=== PATIENT | male | born 1940 | race Caucasian/White ===

== ENCOUNTER 2021-08-02 07:56 | Emergency (ER) | payer OTHER ==
[~2021-08-02] VITALS: Ht 165.1 cm; Wt 68.5 kg
--- NOTE | 2021-08-02 07:56 | NUR ---
[facility] C/O LEFT HEEL BLEEDING. PT IS AAOX0, NOT IN RESPIRATORY DISTRESS, V/S STABLE, KEPT RESTED AND COMFORTABLE. WILL CONTINUE TO MONITOR.
[2021-08-02] MEDS ORDERED: GELATIN SPONGE,ABSORBABLE 1 SPONGE SPONGE TP ONE (08:03)
--- NOTE | 2021-08-02 08:22 | NUR ---
MAGDALENA MYERS AND AT BEDSIDE FOR WOUND CHECK AND DRESSING.
--- NOTE | 2021-08-02 08:30 | NUR ---
IV LINE ESTABLISHED BLOOD DRAWN AND SENT TO LAB.
[2021-08-02 08:45] LABS: BASOPHILS # (AUTO) 0.1 K/uL (0.0-0.2); BASOPHILS % (AUTO) 0.9 % (0.0-2.0); EOSINOPHILS % (AUTO) 4.1 % (0.0-6.0); HEMATOCRIT 37 % (39-51); HEMOGLOBIN 11.7 g/dL (13.5-17.5); LYMPHOCYTES # (AUTO) 0.9 K/uL (0.8-4.8); LYMPHOCYTES % (AUTO) 8.8 % (20.0-44.0); MEAN CORPUSCULAR HGB CONC 32 g/dl (31.0-36.0); MEAN CORPUSCULAR VOLUME 96 fL (80-96); MONOCYTES % (AUTO) 9.6 % (2.0-12.0); NEUTROPHILS # (AUTO) 7.6 K/uL (1.8-8.9); NEUTROPHILS % (AUTO) 76.6 % (43.0-81.0); PLATELET COUNT (AUTO) 247 K/uL (150-450); WHITE BLOOD COUNT (AUTO) 9.9 K/uL (4.3-11.0)
[2021-08-02 09:01] LABS: CALCIUM, SERUM 8.3 mg/dL (8.5-10.1); CARBON DIOXIDE 25 mmol/L (21-32); CHLORIDE 97 mmol/L (98-107); CREATININE 4.1 mg/dL (0.6-1.3); GLUCOSE 101 mg/dL (74-106); POTASSIUM 4.4 mmol/L (3.5-5.1); SODIUM SERUM 136 mmol/L (136-145); UREA NITROGEN, BLOOD 65 mg/dL (7-18)
--- NOTE | 2021-08-02 09:33 | NUR ---
DR MCLEAN PAGED AT [phone]
--- NOTE | 2021-08-02 09:38 | NUR ---
CALL BACK FROM DR MCLEAN, MAY GO BACK TO FACILITY PER DR GONZALEZ
--- NOTE | 2021-08-02 10:16 | NUR ---
SPOKED TO MINO GIVENS FOR PT TRANSFER BACK TO [facility].
--- NOTE | 2021-08-02 10:35 | NUR ---
[facility] CALLED ETA 60 MINS PER LIYA.
--- NOTE | 2021-08-02 12:14 | NUR ---
REPORT GIVEN TO EMT FOR PT TRANSFER TO [facility].
[2021-08-02 12:23] VITALS: BP 101/54
== END 2021-08-02 12:27 ==
LOC: ER 07:59
DX: E11.621 Type 2 diabetes mellitus with foot ulcer (principal); L97.421 Non-pressure chronic ulcer of left heel and midfoot limited to breakdown of skin; I12.0 Hypertensive chronic kidney disease with stage 5 chronic kidney disease or end stage renal disease; E11.22 Type 2 diabetes mellitus with diabetic chronic kidney disease; N18.6 End stage renal disease; Z99.2 Dependence on renal dialysis; E78.5 Hyperlipidemia, unspecified; Z86.73 Personal history of transient ischemic attack (TIA), and cerebral infarction without residual deficits
CPT/HCPCS: 36415; 80048; 85025; 99283; A6403

== ENCOUNTER 2022-01-20 20:13 | Inpatient (IN) | payer OTHER ==
[~2022-01-20] VITALS: Ht 172.7 cm; Wt 71.2 kg
--- NOTE | 2022-01-20 20:35 | NUR ---
FERNANDO FROM [facility] C/O MISSED DIALYSIS FOR X 1 WEEK. DIALYSIS DAYS T THUR SAT. + COVID POSITIVE 01/15/22. PATIENT IS A/O X 3 RR EVEN AND UNLABORED, NO SOB NOTED. PATEINT TAKEN TO ER BED 07. PATIENT CONNECTED TO MONITORS.
--- NOTE | 2022-01-20 20:40 | NUR ---
20G IV LINE ESTABLISHED AT . BLOOD COLLECTED AND SENT TO LAB.
--- NOTE | 2022-01-20 20:50 | NUR ---
COVID TEST COLLECTED AND SENT TO LAB
[2022-01-20 21:21] LABS: BASOPHILS % (AUTO) 0.6 % (0.0-2.0); EOSINOPHILS % (AUTO) 4.2 % (0.0-6.0); HEMATOCRIT 30 % (39-51); HEMOGLOBIN 9.4 g/dL (13.5-17.5); LYMPHOCYTES # (AUTO) 1.3 K/uL (0.8-4.8); LYMPHOCYTES % (AUTO) 18.5 % (20.0-44.0); MEAN CORPUSCULAR HGB CONC 31 g/dl (31.0-36.0); MEAN CORPUSCULAR VOLUME 95 fL (80-96); MONOCYTES # (AUTO) 0.7 K/uL (0.1-1.30); MONOCYTES % (AUTO) 10.5 % (2.0-12.0); NEUTROPHILS # (AUTO) 4.5 K/uL (1.8-8.9); NEUTROPHILS % (AUTO) 66.2 % (43.0-81.0); PLATELET COUNT (AUTO) 289 K/uL (150-450); RED BLOOD CELL COUNT(AUTO) 3.17 MIL/uL (4.5-6.0); WHITE BLOOD COUNT (AUTO) 6.9 K/uL (4.3-11.0)
[2022-01-20 21:42] LABS: ALANINE AMINOTRANSFERASE 20 U/L (12-78); ALBUMIN 2.8 g/dL (3.4-5.0); ALKALINE PHOSPHATASE 117 U/L (46-116); ASPARTATE AMINOTRANSFERASE 21 U/L (15-37); BILIRUBIN,TOTAL 0.5 mg/dL (0.2-1.0); CALCIUM, SERUM 9.2 mg/dL (8.5-10.1); CARBON DIOXIDE 31 mmol/L (21-32); GLUCOSE 96 mg/dL (74-106); TOTAL PROTEIN, SERUM 7.9 g/dL (6.4-8.2)
[2022-01-20 21:56] LABS: CREATININE 8.6 mg/dL (0.6-1.3); UREA NITROGEN, BLOOD 116 mg/dL (7-18)
[2022-01-20 22:16] LABS: CHLORIDE 98 mmol/L (98-107); POTASSIUM 5.3 mmol/L (3.5-5.1); SODIUM SERUM 139 mmol/L (136-145)
[2022-01-20] MEDS ORDERED: APIX5TAB GT (22:29)
[2022-01-20] MEDS ORDERED: ASPI-1169 GT (22:29)
[2022-01-20] MEDS ORDERED: SEVE0.8P3 GT (22:29)
[2022-01-20] MEDS ORDERED: METO25TA6 GT (22:29)
[2022-01-20] MEDS ORDERED: FAMO20TA8 GT (22:29)
[2022-01-20] MEDS ORDERED: CLON0.1T GT (22:29)
[2022-01-20] MEDS ORDERED: CLOP75TA15 GT (22:29)
[2022-01-20] MEDS ORDERED: ATOR80TA GT (22:29)
--- NOTE | 2022-01-20 22:58 | NUR ---
RM 101
[2022-01-20] MEDS ORDERED: ONDANSETRON HCL/PF 4 MG/2 ML VIAL IVP PRN (23:30)
[2022-01-20] MEDS ORDERED: ACETAMINOPHEN 325 MG TABLET PO PRN (23:30)
--- NOTE | 2022-01-20 23:44 | NUR ---
REPORT GIVEN TO KIRILL
--- NOTE | 2022-01-21 00:04 | NUR ---
PT TRANSFERREING TO [facility] VIA ACLS PROTOCOL. VSS. ALL BELONGINGS WITH PT
[2022-01-21 00:15] VITALS: BP 116/58
--- NOTE | 2022-01-21 00:30 | NUR ---
MS RN NOTE PATIENT ARRIVED ON UNIT, A/O X 0, NON-VERBAL OBTUNDED. PATIENT CONTRACTED. PATIENT STABLE ON RA, NO S/S OF DISTRESS OR SOB NOTED, BREATHING EVEN AND UNLABORED. IV ACCESS ON LEFT HAND #20G AND RIGHT HAND #20G INTACT AND FLUSHING WELL. PATIENT HAS WOUNDS ON LEFT ANKLE, LEFT HEEL, POSTERIOR/OCCIPITAL HEAD, SCROTUM/PERINEAL AREA, AND BUTTOCKS. VACCINATION STATUS UNKNOWN. PATIENT HAS HD ACCESS ON LEFT CHEST WALL. PATIENT HAS GTUBE, PER TRANFER PAPERWORK FROM FACILITY PATIENT ON NEPRO @ 85 ML/HR X 16 HRS. PATIENT HAS COUGH, PATIENT POSITIVE FOR COVID SINCE 01/15/22 PER FACILITY. SAFETY MEASURES IN PLACE: HOB ELEVATED, BED LOCKED IN LOWEST POSITION, SIDE RAILS UP X 3. WILL CONTINUE TO MONITOR PATIENT
[2022-01-21] MEDS ORDERED: INSU100I47 SQ (01:33)
[2022-01-21] MEDS ORDERED: CYAN1TAB19 PO (01:33)
[2022-01-21] MEDS ORDERED: NEPRO 1,000 ML BOTTLE GT PRN (02:00)
--- NOTE | 2022-01-21 02:02 | NUR ---
MS RN NOTE NOTIFIED STOREROOM ATTENDANT BRIANA CHILEL REGARDING PATIENT HAVING GTUBE, PER TRANSFER INFORMATION FROM FACILITY PATIENT IS ON NEPRO @ 85 ML/HR X 16 HR. PATIENT IS ALSO DIABETIC BUT NO SLIDING SCALE ORDER. ALSO NOTIFIED THAT MED RECON NEEDS TO BE DONE. ORDER TO RESUME TUBE FEEDING PER FACILITY ORDERS
[2022-01-21 04:00] VITALS: BP 94/55
[2022-01-21] MEDS ORDERED: DEXTROSE 50%-WATER 50 ML DISP.SYRIN IV PRN (04:30)
[2022-01-21 06:51] LABS: BASOPHILS # (AUTO) 0.1 K/uL (0.0-0.2); BASOPHILS % (AUTO) 0.8 % (0.0-2.0); EOSINOPHILS % (AUTO) 5.4 % (0.0-6.0); HEMATOCRIT 27 % (39-51); HEMOGLOBIN 8.8 g/dL (13.5-17.5); LYMPHOCYTES # (AUTO) 1.1 K/uL (0.8-4.8); LYMPHOCYTES % (AUTO) 17.1 % (20.0-44.0); MEAN CORPUSCULAR HGB CONC 32 g/dl (31.0-36.0); MEAN CORPUSCULAR VOLUME 95 fL (80-96); MONOCYTES # (AUTO) 0.8 K/uL (0.1-1.30); MONOCYTES % (AUTO) 12.2 % (2.0-12.0); NEUTROPHILS # (AUTO) 4.1 K/uL (1.8-8.9); NEUTROPHILS % (AUTO) 64.5 % (43.0-81.0); PLATELET COUNT (AUTO) 277 K/uL (150-450); RED BLOOD CELL COUNT(AUTO) 2.88 MIL/uL (4.5-6.0); WHITE BLOOD COUNT (AUTO) 6.4 K/uL (4.3-11.0)
[2022-01-21] MEDS: BLOOD SUGAR DIAGNOSTIC 1 EACH STRIP IN SCH ×4 (06:54→23:49)
[2022-01-21 07:18] LABS: CHOLESTEROL 94 mg/dL (<200); HDL CHOLESTEROL 30 mg/dL (40-60); LDL 44 mg/dL (0-99); TRIGLYCERIDES 134 mg/dL (30-150)
[2022-01-21 07:23] LABS: CALCIUM, SERUM 9.5 mg/dL (8.5-10.1); CARBON DIOXIDE 29 mmol/L (21-32); CHLORIDE 99 mmol/L (98-107); GLUCOSE 99 mg/dL (74-106); MAGNESIUM 3.4 mg/dL (1.8-2.4); PHOSPHORUS 7.6 mg/dL (2.5-4.9); POTASSIUM 5.4 mmol/L (3.5-5.1); SODIUM SERUM 141 mmol/L (136-145)
[2022-01-21 07:26] LABS: UREA NITROGEN, BLOOD 125 mg/dL (7-18)
[2022-01-21 07:27] LABS: CREATININE 9.1 mg/dL (0.6-1.3)
--- NOTE | 2022-01-21 07:30 | NUR ---
MS RN OPENING NOTES RECEIVED PATIENT SLEEPING COMFORTABLY IN BED. PATIENT IS A/O X 0, NON-VERBAL AND OBTUNDED. CURRENTLY, PATIENT IS ON RA, BREATHING EVEN AND UNLABORED. NO S/S OF DISTRESS OR SOB NOTED. PATIENT ON DROPLET/CONTACT PRECAUTIONS D/T COVID. IV ACCESS ON LEFT WRIST #20G AND RIGHT WRIST #20G INTACT AND SALINE LOCKED. PATIENT STARTED ON GT FEEDING, NEPRO @ 85 ML/HR X 16 HR. SAFETY MEASURES IN PLACE: HOB ELEVATED, SIDE RAILS UP X 3, BED LOCKED IN LOWEST POSITION, BED ALARM ON. WILL CONTINUE TO MONITOR FOR CONTINUITY OF CARE
--- NOTE | 2022-01-21 07:45 | NUR ---
MS RN CLOSING NOTE PATIENT SLEEPING IN BED, A/O X 0, OBTUNDED, NON-VERBAL. PATIENT STABLE ON RA, NO S/S OF DISTRESS OR SOB NOTED, BREATHING EVEN AND UNLABORED. IV ACCESS ON LEFT WRIST #20G AND RIGHT WRIST #20G INTACT AND SALINE LOCKED. PATIENT STARTED ON GT FEEDING, NEPRO @ 85 ML/HR X 16 HR. NO SIGNIFICANT CHANGES, PATIENT NEEDS MET THROUGHOUT SHIFT, PATIENT TURNED Q2H. SAFETY MEASURES IN PLACE: HOB ELEVATED, SIDE RAILS UP X 3, BED LOCKED IN LOWEST POSITION, BED ALARM ON, PATIENT ON DROPLET/CONTACT PRECAUTIONS FOR COVID. BLOOD SUGARS WNL. ENDORSED TO DAY SHIFT NURSE FOR CONTINUITY OF CARE
[2022-01-21] MEDS ORDERED: NITR0.4T48 SL (08:31)
[2022-01-21] MEDS ORDERED: NUT.237L67 GT (08:31)
[2022-01-21] MEDS ORDERED: BISA10SU11 RC (08:31)
[2022-01-21] MEDS ORDERED: DOCU50LI GT (08:31)
[2022-01-21] MEDS ORDERED: FOLI0.8T23 GT (08:31)
[2022-01-21] MEDS ORDERED: ACET-868 GT (08:31)
[2022-01-21] MEDS ORDERED: HYDR-4303 GT (08:31)
[2022-01-21] MEDS ORDERED: DIPH25TA22 GT (08:31)
[2022-01-21] MEDS ORDERED: EPOETIN ALFA (10,000 UNIT) 10,000 UNIT/ML VIAL IV ONE (09:00)
[2022-01-21] MEDS: METOPROLOL TARTRATE 25 MG TABLET PO SCH ×2 (09:00→17:00)
--- NOTE | 2022-01-21 09:20 | NUR ---
MS RN NOTES PATIENT IS IN DIALYSIS, HOLDING AM MEDS.
--- NOTE | 2022-01-21 10:31 | NUR ---
WOUND CARE CONSULT: REVIEWED CHART, NURSING DOCUMENTATION AND PHOTOS WHICH INDICATE SACRAL SCARRING WITH INCONTINENCE ASSOCIATED SKIN DAMAGE, OPEN AREA TO SCROTUM, FULL THICKNESS PRESSURE ULCER TO POSTERIOR SCALP AND LOWER EXTREMITY WOUNDS, PRESENT ON ADMISSION. DR LEDBETTER CALLED FOR DPM CONSULT AND DR LASHANDA MCLEAN CALLED FOR SURGICAL CONSULT. RECOMMENDATIONS MADE FOR SKIN PROTECTION AND WOUND CARE. DISCUSSED WITH NURSING STAFF. MD IN AGREEMENT WITH PLAN OF CARE. PT HAVING HEMODIALYSIS AT THIS TIME.
[2022-01-21] MEDS: ALBUMIN 25% 25 GM in PREMIX 1 EA IV PRN (10:50)
[2022-01-21] MEDS: THERAHONEY GEL 1.5 OZ TUBE TP SCH (12:21)
[2022-01-21] MEDS: Z GUARD REMEDY 4 OZ OINT TP SCH (12:21)
[2022-01-21] MEDS: ASPIRIN 81 MG TAB.CHEW PO SCH (12:28)
[2022-01-21] MEDS: SEVELAMER CARBONATE 800 MG TABLET PO SCH ×3 (12:28→17:55)
[2022-01-21] MEDS: APIXABAN 5 MG TABLET PO SCH ×2 (12:29→17:55)
[2022-01-21] MEDS: HEPARIN SODIUM, PORCINE 5000 UNITS/1 ML VIAL SQ SCH ×2 (12:29→21:32)
[2022-01-21] MEDS: CLOPIDOGREL BISULFATE 75 MG TABLET PO SCH (12:30)
--- NOTE | 2022-01-21 13:21 | NUR ---
MS RN NOTES SEVELAMER DOSE @1300 IS HOLD. PATIENT HAD A DIALYSIS, AND AM MEDICATIONS JUST ADMINISTERED.
--- NOTE | 2022-01-21 13:41 | NUR ---
MS RN NOTES CALLED DR. SAVAGE REGARDING ABOUT THE PT.'S DAUGHTER REQUEST (MALCOLM) FOR NOT ADMINISTERING KLONOPIN & BENZO. DR IS INFORMED ABOUT THE FAMILY MEMBER'S REQUEST FOR NAMENDA & LIPRASODINE. WAITING FOR THE DR'S APPROVAL.
[2022-01-21] MEDS: FAMOTIDINE (20 MG) 20 MG TABLET PO SCH (17:56)
[2022-01-21] MEDS: NEPRO 1,000 ML BOTTLE GT PRN (19:00)
[2022-01-21 20:00] VITALS: BP 100/53
--- NOTE | 2022-01-21 20:00 | NUR ---
RN NOTE PT SLEEPING, OPEN EYES TO VERBAL STIMULI. NOT IN ANY DISTRESS, ON ROOM AIR SATING 97%. GT PATENT AND INTACT, ON NEPRO FEEDING AT 85ML/HR NO RESIDUALS WERE NOTED. HOB ELEVATED. IV PATENT AND INTACT. ISOLATION PRECAUTION OBSERVED. WILL CONTINUE TO MONITOR.
[2022-01-21] MEDS: ATORVASTATIN 40 MG TABLET PO SCH (21:30)
--- NOTE | 2022-01-21 22:44 | NUR ---
RN NOTE GT FEEDING STOPPED, WITH ORDERS OF 85ML/HR [id number]. WILL RESTART FEEDING AT 0600.
--- NOTE | 2022-01-21 23:49 | NUR ---
RN NOTE FSBS 117. NO INSULIN COVERAGE GIVEN.
[2022-01-22 04:00] VITALS: BP 99/51
[2022-01-22] MEDS: BLOOD SUGAR DIAGNOSTIC 1 EACH STRIP IN SCH ×4 (05:40→23:01)
[2022-01-22] MEDS: INSULIN REGULAR, HUMAN 100 UNIT/ML 3 ML VIAL SQ PRN (05:42)
--- NOTE | 2022-01-22 06:34 | NUR ---
RN NOTE RESTARTED TUBE FEEDING.KEPT HOB ELEVATED. PT TOLERATES ROOM AIR, SATING 96%. NOT IN ANY DISTRESS. LEFT CHEST WALL HD CATH INTACT. VS WNL. WOUND TX WERE DONE ORDERED. TURNED AND REPOSITIONED. WILL ENDORSE TO NEXT SHIFT NURSE FOR JOSE.
[2022-01-22 07:28] LABS: BASOPHILS % (AUTO) 0.6 % (0.0-2.0); EOSINOPHILS % (AUTO) 4.2 % (0.0-6.0); HEMATOCRIT 26 % (39-51); HEMOGLOBIN 8.3 g/dL (13.5-17.5); MEAN CORPUSCULAR HGB CONC 32 g/dl (31.0-36.0); MEAN CORPUSCULAR VOLUME 95 fL (80-96); MONOCYTES # (AUTO) 0.6 K/uL (0.1-1.30); MONOCYTES % (AUTO) 8.7 % (2.0-12.0); NEUTROPHILS # (AUTO) 5.1 K/uL (1.8-8.9); NEUTROPHILS % (AUTO) 72.5 % (43.0-81.0); PLATELET COUNT (AUTO) 253 K/uL (150-450); RED BLOOD CELL COUNT(AUTO) 2.74 MIL/uL (4.5-6.0); WHITE BLOOD COUNT (AUTO) 7.1 K/uL (4.3-11.0)
--- NOTE | 2022-01-22 07:35 | NUR ---
RN NOTE PT RECEIVED IN BED, AWAKE AND RESPONSIVE. IN RA, NOT IN RESPI DISTRESS. COVID [address] AND PATENT WITH FEEDING NEPRO @ 85 CC/HR. ASPIRATION PREC MAINTAINED. LCW PERMACATH IN PLACE, NO SS OF BLEEDING NOTED. SAFETY MAINTAINED. WILL CONT TO MONITOR.
[2022-01-22 07:41] LABS: CALCIUM, SERUM 9.3 mg/dL (8.5-10.1); CARBON DIOXIDE 25 mmol/L (21-32); CHLORIDE 100 mmol/L (98-107); CREATININE 7.2 mg/dL (0.6-1.3); GLUCOSE 164 mg/dL (74-106); MAGNESIUM 3.1 mg/dL (1.8-2.4); PHOSPHORUS 4.9 mg/dL (2.5-4.9); POTASSIUM 4.5 mmol/L (3.5-5.1); SODIUM SERUM 139 mmol/L (136-145)
[2022-01-22 07:53] LABS: UREA NITROGEN, BLOOD 99 mg/dL (7-18)
[2022-01-22 08:38] LABS: ALBUMIN 2.8 g/dL (3.4-5.0); BILIRUBIN,DIRECT 0.1 mg/dL (0.0-0.2); BILIRUBIN,TOTAL 0.2 mg/dL (0.2-1.0); TOTAL PROTEIN, SERUM 6.7 g/dL (6.4-8.2)
[2022-01-22] MEDS: ASPIRIN 81 MG TAB.CHEW PO SCH (08:56)
[2022-01-22] MEDS: SEVELAMER CARBONATE 800 MG TABLET PO SCH (08:56)
[2022-01-22] MEDS: CLOPIDOGREL BISULFATE 75 MG TABLET PO SCH (08:56)
[2022-01-22] MEDS: APIXABAN 5 MG TABLET PO SCH ×2 (08:57→17:33)
[2022-01-22] MEDS: HEPARIN SODIUM, PORCINE 5000 UNITS/1 ML VIAL SQ SCH (08:57)
[2022-01-22] MEDS: METOPROLOL TARTRATE 25 MG TABLET PO SCH ×2 (09:00→17:00)
[2022-01-22] MEDS: THERAHONEY GEL 1.5 OZ TUBE TP SCH (09:11)
[2022-01-22] MEDS: Z GUARD REMEDY 4 OZ OINT TP PRN (09:12)
[2022-01-22] MEDS: Z GUARD REMEDY 4 OZ OINT TP SCH (09:12)
[2022-01-22 12:00] VITALS: BP 98/43
[2022-01-22] MEDS: SEVELAMER CARBONATE 800 MG POWD.PACK GT SCH ×2 (12:41→17:31)
[2022-01-22] MEDS ORDERED: APIXABAN 2.5 MG TABLET PO SCH (17:00)
[2022-01-22] MEDS: FAMOTIDINE (20 MG) 20 MG TABLET PO SCH (17:31)
[2022-01-22] MEDS: ALBUMIN 25% 25 GM in PREMIX 1 EA IV PRN (17:39)
[2022-01-22] MEDS: DAKINS QUARTER STRENGTH (0.125%) 480 ML BOTTLE TOP SCH (17:40)
--- NOTE | 2022-01-22 18:57 | NUR ---
RN NOTE PT RESTING IN BED, AWAKE AND RESPONSIVE.PT OBTUNDED. IN RA, NOT IN RESPI DISTRESS. COVID [address] AND PATENT WITH FEEDING NEPRO @ 85 CC/HR. ASPIRATION PREC MAINTAINED. LCW PERMACATH IN PLACE, NO SS OF BLEEDING NOTED. SAFETY MAINTAINED. S/P HD WITH 700 FLUIDS REMOVED. HD D/C EARLIER DUE TO HYPOTENSION. WILL CONT TO MONITOR. DUE MEDS GIVEN, AM/PM CARE DONE.
--- NOTE | 2022-01-22 19:29 | NUR ---
RN NOTE WOUND CX ON HEAD COLLECTED AND SENT TO LAB.
[2022-01-22] MEDS: NEPRO 1,000 ML BOTTLE GT PRN (19:30)
[2022-01-22 20:00] VITALS: BP 104/57
[2022-01-22] MEDS: ATORVASTATIN 40 MG TABLET PO SCH (22:02)
[2022-01-23 04:00] VITALS: BP 119/58
[2022-01-23] MEDS: BLOOD SUGAR DIAGNOSTIC 1 EACH STRIP IN SCH ×3 (05:36→17:16)
--- NOTE | 2022-01-23 06:23 | NUR ---
RN NOTE TUBE FEEDING STOPPED AT 2200 RESTARTED AT 0600, NO RESIDUALS NOTED.KEPT HOB ELEVATED. PT TOLERATES ROOM AIR, SATING 97%.NO SOB NOTED. NOT IN ANY DISTRESS. LEFT CHEST WALL HD CATH INTACT. FSBS 98, NO INSULIN COVERAGE GIVEN. WOUND TX WERE DONE ORDERED. TURNED AND REPOSITIONED. WILL ENDORSE TO NEXT SHIFT NURSE FOR JOSE.
--- NOTE | 2022-01-23 07:27 | NUR ---
RN OPENING NOTES RECEIVED PATIENT REPORT FROM NIGHTSHIFT. PATIENT IN BED OBTUNDED, WITH O2 SATURATION IN THE 90S. BREATHING EVENLY AND UNLABORED. SKIN ABNORMALITIES NOTED AND DOCUMENTED IN PHYSICAL CHART. TUBE FEEDING RUNNING NEPHRO AT 85 MLS/HR. IV ACCESS NOTED ON LEFT WRIST AND RIGHT HAND BOTH 20 GAUGE, FLUSHING EASILY WITH NO RESISTANCE. SAFETY MEASURES IN PLACE, SIDE RAILS UP, CALL LIGHT WITHIN REACH. WILL CONTINUE PLAN OF CARE AND ANTICIPATE NEEDS.
[2022-01-23 08:06] LABS: ALANINE AMINOTRANSFERASE 14 U/L (12-78); ALBUMIN 3.3 g/dL (3.4-5.0); ALKALINE PHOSPHATASE 108 U/L (46-116); ASPARTATE AMINOTRANSFERASE 17 U/L (15-37); BILIRUBIN,TOTAL 0.6 mg/dL (0.2-1.0); CALCIUM, SERUM 8.8 mg/dL (8.5-10.1); CARBON DIOXIDE 31 mmol/L (21-32); CREATININE 6.2 mg/dL (0.6-1.3); GLUCOSE 97 mg/dL (74-106); TOTAL PROTEIN, SERUM 7.3 g/dL (6.4-8.2)
[2022-01-23 08:24] LABS: CHLORIDE 100 mmol/L (98-107); POTASSIUM 4.3 mmol/L (3.5-5.1); SODIUM SERUM 141 mmol/L (136-145)
[2022-01-23 08:32] LABS: UREA NITROGEN, BLOOD 80 mg/dL (7-18)
[2022-01-23] MEDS: DAKINS QUARTER STRENGTH (0.125%) 480 ML BOTTLE TOP SCH (09:00)
[2022-01-23] MEDS: Z GUARD REMEDY 4 OZ OINT TP SCH (09:00)
[2022-01-23] MEDS: THERAHONEY GEL 1.5 OZ TUBE TP SCH (09:00)
[2022-01-23] MEDS: METOPROLOL TARTRATE 25 MG TABLET PO SCH ×2 (10:06→17:13)
[2022-01-23] MEDS: ASPIRIN 81 MG TAB.CHEW PO SCH (10:07)
[2022-01-23] MEDS: CLOPIDOGREL BISULFATE 75 MG TABLET PO SCH (10:07)
[2022-01-23] MEDS: SEVELAMER CARBONATE 800 MG POWD.PACK GT SCH ×3 (10:07→17:14)
[2022-01-23] MEDS: APIXABAN 5 MG TABLET PO SCH ×2 (10:08→17:15)
[2022-01-23 12:00] VITALS: BP 97/46
[2022-01-23] MEDS: INSULIN REGULAR, HUMAN 100 UNIT/ML 3 ML VIAL SQ PRN (12:33)
[2022-01-23] MEDS: FAMOTIDINE (20 MG) 20 MG TABLET PO SCH (17:13)
--- NOTE | 2022-01-23 18:23 | NUR ---
RN CLOSING NOTES PATIENT REMAINS IN BED OBTUNDED, WITH O2 SATURATION IN THE 90S. BREATHING EVENLY AND UNLABORED. DURING SHIFT PATIENT WOULD OCCASIONALLY GRUNT AND COUGH, WAS ABLE TO CLEAR SECRETIONS ON HIS OWN. SKIN ABNORMALITIES NOTED AND DOCUMENTED IN PHYSICAL CHART. TUBE FEEDING RUNNING NEPHRO AT 85 MLS/HR. IV ACCESS NOTED ON LEFT WRIST AND RIGHT HAND BOTH 20 GAUGE, FLUSHING EASILY WITH NO RESISTANCE. SAFETY MEASURES IN PLACE, SIDE RAILS UP, CALL LIGHT WITHIN REACH. WILL ENDORSE TO NIGHTSHIFT RN FOR CONTINUATION OF CARE.
[2022-01-23 20:00] VITALS: BP 115/43
[2022-01-23] MEDS: NEPRO 1,000 ML BOTTLE GT PRN (21:35)
[2022-01-23] MEDS: ATORVASTATIN 40 MG TABLET PO SCH (21:35)
[2022-01-24] MEDS: BLOOD SUGAR DIAGNOSTIC 1 EACH STRIP IN SCH ×4 (00:17→17:39)
[2022-01-24 04:00] VITALS: BP 109/50
[2022-01-24] MEDS: INSULIN REGULAR, HUMAN 100 UNIT/ML 3 ML VIAL SQ PRN (06:44)
--- NOTE | 2022-01-24 06:56 | NUR ---
RN CLOSING NOTES PATIENT REMAINS IN BED OBTUNDED, WITH O2 SATURATION IN THE 90S. BREATHING EVENLY AND UNLABORED. DURING SHIFT PATIENT WOULD OCCASIONALLY GRUNT AND COUGH, WAS ABLE TO CLEAR SECRETIONS ON HIS OWN. SKIN ABNORMALITIES NOTED AND DOCUMENTED IN PHYSICAL CHART. TUBE FEEDING RUNNING NEPHRO AT 85 MLS/HR. IV ACCESS NOTED ON LEFT WRIST AND RIGHT HAND BOTH 20 GAUGE, FLUSHING EASILY WITH NO RESISTANCE. SAFETY MEASURES IN PLACE, SIDE RAILS UP, CALL LIGHT WITHIN REACH. WILL ENDORSE TO MORNING RN FOR CONTINUATION OF CARE.
[2022-01-24 07:31] LABS: BASOPHILS % (AUTO) 0.7 % (0.0-2.0); EOSINOPHILS % (AUTO) 4.7 % (0.0-6.0); HEMATOCRIT 26 % (39-51); HEMOGLOBIN 8.2 g/dL (13.5-17.5); LYMPHOCYTES # (AUTO) 1.1 K/uL (0.8-4.8); LYMPHOCYTES % (AUTO) 15.1 % (20.0-44.0); MEAN CORPUSCULAR HGB CONC 32 g/dl (31.0-36.0); MEAN CORPUSCULAR VOLUME 95 fL (80-96); MONOCYTES # (AUTO) 0.7 K/uL (0.1-1.30); MONOCYTES % (AUTO) 10.3 % (2.0-12.0); NEUTROPHILS # (AUTO) 4.9 K/uL (1.8-8.9); NEUTROPHILS % (AUTO) 69.2 % (43.0-81.0); PLATELET COUNT (AUTO) 274 K/uL (150-450); RED BLOOD CELL COUNT(AUTO) 2.72 MIL/uL (4.5-6.0)
[2022-01-24 07:56] LABS: ALANINE AMINOTRANSFERASE 11 U/L (12-78); ALBUMIN 2.9 g/dL (3.4-5.0); ALKALINE PHOSPHATASE 144 U/L (46-116); ASPARTATE AMINOTRANSFERASE 18 U/L (15-37); BILIRUBIN,TOTAL 0.4 mg/dL (0.2-1.0); CARBON DIOXIDE 29 mmol/L (21-32); CHLORIDE 98 mmol/L (98-107); CREATININE 7.2 mg/dL (0.6-1.3); GLUCOSE 116 mg/dL (74-106); POTASSIUM 4.2 mmol/L (3.5-5.1); SODIUM SERUM 137 mmol/L (136-145); TOTAL PROTEIN, SERUM 7.1 g/dL (6.4-8.2)
[2022-01-24 08:02] LABS: UREA NITROGEN, BLOOD 104 mg/dL (7-18)
[2022-01-24 08:08] LABS: MAGNESIUM 3.1 mg/dL (1.8-2.4); PHOSPHORUS 5.2 mg/dL (2.5-4.9)
[2022-01-24] MEDS: THERAHONEY GEL 1.5 OZ TUBE TP SCH (09:00)
[2022-01-24] MEDS: ASPIRIN 81 MG TAB.CHEW PO SCH (09:33)
[2022-01-24] MEDS: SEVELAMER CARBONATE 800 MG POWD.PACK GT SCH ×3 (09:34→17:38)
[2022-01-24] MEDS: CLOPIDOGREL BISULFATE 75 MG TABLET PO SCH (09:34)
[2022-01-24] MEDS: METOPROLOL TARTRATE 25 MG TABLET PO SCH ×2 (09:35→17:00)
[2022-01-24] MEDS: APIXABAN 5 MG TABLET PO SCH ×2 (09:39→17:39)
[2022-01-24] MEDS: DAKINS QUARTER STRENGTH (0.125%) 480 ML BOTTLE TOP SCH (09:50)
[2022-01-24] MEDS: Z GUARD REMEDY 4 OZ OINT TP SCH (09:51)
[2022-01-24 12:00] VITALS: BP 104/54
[2022-01-24] MEDS: NEPRO 1,000 ML BOTTLE GT PRN (12:49)
[2022-01-24] MEDS: ALBUMIN 25% 25 GM in PREMIX 1 EA IV PRN (14:22)
[2022-01-24] MEDS: CEFEPIME 1 GM in IV D5W 50 ML IV SCH (16:45)
--- NOTE | 2022-01-24 16:45 | NUR ---
RN NOTE PT S/P HD, WITH 2.2L OF FLUIDS REMOVED. WILL GIVE 1400 IV CEFEPIME. PT V/S WNL. NOT IN DISTRESS.
[2022-01-24] MEDS: FAMOTIDINE (20 MG) 20 MG TABLET PO SCH (17:38)
--- NOTE | 2022-01-24 18:55 | NUR ---
RN NOTE PT RESTING IN BED, PT OBTUNDED. IN RA, NOT IN RESPI DISTRESS. COVID [address] AND PATENT WITH FEEDING NEPRO @ 85 CC/HR. ASPIRATION PREC MAINTAINED. LCW PERMACATH IN PLACE, NO SS OF BLEEDING NOTED. DUE MEDS GIVEN, AM/PM CARE DONE. SAFETY MAINTAINED. WILL CONT TO MONITOR.
--- NOTE | 2022-01-24 19:10 | NUR ---
RN NOTES RN NOTE PT SLEEPING, OPEN EYES TO VERBAL STIMULI. NOT IN ANY DISTRESS, NO SOB NOTED, ON ROOM AIR SATING 97%. GT PATENT AND INTACT, ON NEPRO FEEDING AT 85ML/HR, NO RESIDUALS WERE NOTED. HOB ELEVATED. IV PATENT AND INTACT. LEFT CHEST HD CATH INTACT. COVID ISOLATION PRECAUTION OBSERVED. WILL CONTINUE TO MONITOR.
[2022-01-24 20:00] VITALS: BP 118/50
[2022-01-24] MEDS: ATORVASTATIN 40 MG TABLET PO SCH (22:11)
[2022-01-25] MEDS: BLOOD SUGAR DIAGNOSTIC 1 EACH STRIP IN SCH ×5 (00:48→23:15)
[2022-01-25 04:00] VITALS: BP 138/65
[2022-01-25 08:00] VITALS: BP 124/56
[2022-01-25] MEDS: SEVELAMER CARBONATE 800 MG POWD.PACK GT SCH ×3 (09:07→17:48)
[2022-01-25] MEDS: ASPIRIN 81 MG TAB.CHEW PO SCH (09:07)
[2022-01-25] MEDS: METOPROLOL TARTRATE 25 MG TABLET PO SCH ×2 (09:11→17:00)
[2022-01-25] MEDS: DAKINS QUARTER STRENGTH (0.125%) 480 ML BOTTLE TOP SCH (09:11)
[2022-01-25] MEDS: Z GUARD REMEDY 4 OZ OINT TP SCH (09:11)
[2022-01-25] MEDS: CLOPIDOGREL BISULFATE 75 MG TABLET PO SCH (09:11)
[2022-01-25] MEDS: APIXABAN 5 MG TABLET PO SCH ×2 (09:12→17:51)
[2022-01-25] MEDS: THERAHONEY GEL 1.5 OZ TUBE TP SCH (09:13)
[2022-01-25] MEDS ORDERED: AMOX-430 PO (10:43)
[2022-01-25] MEDS: CEFEPIME 1 GM in IV D5W 50 ML IV SCH (14:24)
[2022-01-25] MEDS: NEPRO 1,000 ML BOTTLE GT PRN (14:24)
[2022-01-25 16:00] VITALS: BP 90/39
[2022-01-25] MEDS: FAMOTIDINE (20 MG) 20 MG TABLET PO SCH (17:50)
[2022-01-25 18:00] VITALS: BP 92/45
--- NOTE | 2022-01-25 19:50 | NUR ---
MS RN OPENING NOTES PATIENT REMAINS IN BED SLEEPING BUT EASILY AROUSABLE TO TOUCH AND VOICE, ON RA WITH O2 SATURATION IN THE 90S. BREATHING EVENLY AND UNLABORED. NO S/SX OF RESPIRATORY DISTRESS. WITH IV ACCESS ON L WRIST # 20G INTACT AND PATENT, TUBE FEEDING RUNNING NEPHRO AT 85 ML/HR. SAFETY MEASURES IN PLACE, SIDE RAILS UP, CALL LIGHT WITHIN REACH. BED IN LOWEST AND LOCKED POSITION. WILL CONTINUE TO MONITOR THROUGHOUT THE SHIFT.
[2022-01-25 20:00] VITALS: BP 90/50
[2022-01-25] MEDS: ATORVASTATIN 40 MG TABLET PO SCH (21:48)
--- NOTE | 2022-01-25 23:15 | NUR ---
RN NOTE BS CHECKED AT 121 MG/DL, NO COVERAGE GIVEN.
[2022-01-26] MEDS: NEPRO 1,000 ML BOTTLE GT PRN ×2 (03:09→23:14)
[2022-01-26 04:00] VITALS: BP 90/50
--- NOTE | 2022-01-26 05:16 | NUR ---
RN NOTE BS CHECKED AT 98 MG/DL, NO COVERAGE GIVEN.
[2022-01-26] MEDS: BLOOD SUGAR DIAGNOSTIC 1 EACH STRIP IN SCH ×4 (05:17→23:14)
--- NOTE | 2022-01-26 06:41 | NUR ---
MS RN CLOSING NOTES NO SIGNIFICANT CHANGES THROUGHOUT THE SHIFT. PATIENT REMAINS IN BED SLEEPING BUT EASILY AROUSABLE TO TOUCH AND VOICE, ON RA WITH O2 SATURATION IN THE 90S. BREATHING EVENLY AND UNLABORED. NO S/SX OF RESPIRATORY DISTRESS. WITH IV ACCESS ON L WRIST # 20G INTACT AND PATENT, TUBE FEEDING NEPHRO AT 85 ML/HR OFF 2200, ON 0600. SAFETY MEASURES IN PLACE, SIDE RAILS UP,ALL DUE MEDS GIVEN, KEPT DRY AND CLEAN, CALL LIGHT WITHIN REACH. BED IN LOWEST AND LOCKED POSITION. WILL ENDORSE TO AM SHIFT NURSE.
[2022-01-26] MEDS ORDERED: MEROPENEM 1 G in IV NS 0.9% 100 ML IV SCH (08:30)
[2022-01-26] MEDS: METOPROLOL TARTRATE 25 MG TABLET PO SCH ×2 (09:00→17:00)
[2022-01-26 09:26] LABS: ALANINE AMINOTRANSFERASE 22 U/L (12-78); ALKALINE PHOSPHATASE 151 U/L (46-116); ASPARTATE AMINOTRANSFERASE 23 U/L (15-37); BILIRUBIN,TOTAL 0.4 mg/dL (0.2-1.0); CALCIUM, SERUM 9.7 mg/dL (8.5-10.1); CARBON DIOXIDE 26 mmol/L (21-32); CHLORIDE 92 mmol/L (98-107); CREATININE 6.2 mg/dL (0.6-1.3); GLUCOSE 152 mg/dL (74-106); POTASSIUM 4.3 mmol/L (3.5-5.1); SODIUM SERUM 129 mmol/L (136-145); TOTAL PROTEIN, SERUM 7.2 g/dL (6.4-8.2)
[2022-01-26 09:29] LABS: UREA NITROGEN, BLOOD 89 mg/dL (7-18)
[2022-01-26] MEDS: SEVELAMER CARBONATE 800 MG POWD.PACK GT SCH ×3 (09:55→16:53)
[2022-01-26] MEDS: ASPIRIN 81 MG TAB.CHEW PO SCH (09:58)
[2022-01-26] MEDS: CLOPIDOGREL BISULFATE 75 MG TABLET PO SCH (09:58)
[2022-01-26] MEDS: LINEZOLID 600 MG TABLET PO SCH ×2 (09:58→21:38)
[2022-01-26] MEDS: APIXABAN 5 MG TABLET PO SCH ×2 (10:00→16:54)
[2022-01-26] MEDS: DAKINS QUARTER STRENGTH (0.125%) 480 ML BOTTLE TOP SCH (10:02)
[2022-01-26] MEDS: Z GUARD REMEDY 4 OZ OINT TP SCH (10:02)
[2022-01-26] MEDS: THERAHONEY GEL 1.5 OZ TUBE TP SCH (10:02)
--- NOTE | 2022-01-26 10:30 | NUR ---
NOTIFIED PT BP 98/53. ORDERED TO PUT LOPRESSOR 12.5 ON HOLD. HELD ORDERED.
[2022-01-26] MEDS: MEROPENEM 500 MG in IV NS 0.9% 50 ML IV SCH (11:13)
[2022-01-26 11:44] LABS: BASOPHILS % (AUTO) 0.5 % (0.0-2.0); EOSINOPHILS % (AUTO) 3.7 % (0.0-6.0); HEMATOCRIT 25 % (39-51); HEMOGLOBIN 7.8 g/dL (13.5-17.5); LYMPHOCYTES # (AUTO) 0.9 K/uL (0.8-4.8); LYMPHOCYTES % (AUTO) 11.7 % (20.0-44.0); MEAN CORPUSCULAR HGB CONC 32 g/dl (31.0-36.0); MEAN CORPUSCULAR VOLUME 96 fL (80-96); MONOCYTES # (AUTO) 0.5 K/uL (0.1-1.30); MONOCYTES % (AUTO) 6.7 % (2.0-12.0); NEUTROPHILS # (AUTO) 6.2 K/uL (1.8-8.9); NEUTROPHILS % (AUTO) 77.4 % (43.0-81.0); PLATELET COUNT (AUTO) 312 K/uL (150-450)
[2022-01-26 12:00] VITALS: BP 98/53
[2022-01-26] MEDS ORDERED: AMPICILLIN 1 GM VIAL IM SCH (12:00)
[2022-01-26] MEDS: INSULIN REGULAR, HUMAN 100 UNIT/ML 3 ML VIAL SQ PRN (12:47)
[2022-01-26] MEDS ORDERED: EPOETIN ALFA-EPBX 10,000 UNIT/ML VIAL IV ONE (15:00)
[2022-01-26] MEDS: FAMOTIDINE (20 MG) 20 MG TABLET PO SCH (17:11)
--- NOTE | 2022-01-26 19:02 | NUR ---
MS RN CLOSING NOTES PATIENT AWAKE IN BED INTERMITTENTLY SLEEPING BUT EASILY AROUSABLE TO TOUCH AND VOICE, ON RA WITH O2 SATURATION AT 100%. BREATHING EVENLY AND UNLABORED. NO S/SX OF RESPIRATORY DISTRESS. WITH IV ACCESS ON L WRIST # 20G INTACT AND PATENT, TUBE FEEDING NEPHRO AT 85 ML/HR OFF 2200, ON 0600. SAFETY MEASURES IN PLACE, SIDE RAILS UP,ALL DUE MEDS GIVEN, KEPT DRY AND CLEAN, CALL LIGHT WITHIN REACH. BED IN LOWEST AND LOCKED POSITION. WILL ENDORSE TO NEXT SHIFT NURSE FOR CONTINUITY OF CARE.
[2022-01-26 20:00] VITALS: BP 90/40
--- NOTE | 2022-01-26 20:00 | NUR ---
MS RN OPENING NOTES RECEIVED PATIENT IN BED SLEEPING BUT EASILY AROUSABLE TO TOUCH AND VOICE, ON RA WITH O2 SATURATION IN THE 90S. BREATHING EVEN AND UNLABORED. NO S/SX OF RESPIRATORY DISTRESS. WITH IV ACCESS ON L WRIST #20G INTACT AND PATENT, TUBE FEEDING RUNNING NEPHRO AT 85 ML/HR. SAFETY MEASURES IN PLACE, SIDE RAILS UP, CALL LIGHT WITHIN REACH. BED IN LOWEST AND LOCKED POSITION. WILL CONTINUE TO MONITOR THROUGHOUT THE SHIFT.
[2022-01-26] MEDS: ATORVASTATIN 40 MG TABLET PO SCH (21:38)
--- NOTE | 2022-01-26 23:00 | NUR ---
RN NOTE GT FEEDING TURNED OFF. CHECKED BS AT 77 MG/DL, NO COVERAGE GIVEN. WILL CONT TO MONITOR.
[2022-01-27 04:00] VITALS: BP 97/42
--- NOTE | 2022-01-27 05:30 | NUR ---
RN NOTE BS CHECKED AT 104 MG/DL, NO COVERAGE GIVEN.
[2022-01-27] MEDS: BLOOD SUGAR DIAGNOSTIC 1 EACH STRIP IN SCH ×3 (06:38→17:08)
--- NOTE | 2022-01-27 06:42 | NUR ---
MS RN CLOSING NOTES PATIENT REMAINS IN BED NONVERBAL OPENS EYES, ON RA WITH O2 SATURATION IN THE 96%. BREATHING EVEN AND UNLABORED. NO S/SX OF RESPIRATORY DISTRESS. WITH IV ACCESS ON L WRIST #20G INTACT AND PATENT, TUBE FEEDING TURNED ON RUNNING NEPHRO AT 85 ML/HR. SAFETY MEASURES IN PLACE, SIDE RAILS UP, CALL LIGHT WITHIN REACH. BED IN LOWEST AND LOCKED POSITION. WILL ENDORSE TO AM SHIFT NURSE.
[2022-01-27 07:19] LABS: BASOPHILS # (AUTO) 0.1 K/uL (0.0-0.2); BASOPHILS % (AUTO) 0.8 % (0.0-2.0); EOSINOPHILS % (AUTO) 4.4 % (0.0-6.0); HEMATOCRIT 24 % (39-51); HEMOGLOBIN 7.6 g/dL (13.5-17.5); LYMPHOCYTES % (AUTO) 13.8 % (20.0-44.0); MEAN CORPUSCULAR HGB CONC 32 g/dl (31.0-36.0); MEAN CORPUSCULAR VOLUME 95 fL (80-96); MONOCYTES # (AUTO) 0.7 K/uL (0.1-1.30); MONOCYTES % (AUTO) 10.5 % (2.0-12.0); NEUTROPHILS % (AUTO) 70.5 % (43.0-81.0); PLATELET COUNT (AUTO) 338 K/uL (150-450); RED BLOOD CELL COUNT(AUTO) 2.51 MIL/uL (4.5-6.0); WHITE BLOOD COUNT (AUTO) 7.1 K/uL (4.3-11.0)
--- NOTE | 2022-01-27 07:51 | NUR ---
MS RN OPENING NOTES RECEIVED PATIENT IN BED SLEEPING BUT EASILY AROUSABLE TO TOUCH AND VOICE, ON RA WITH O2 SATURATION IN THE 90S. BREATHING EVEN AND UNLABORED. NO S/SX OF RESPIRATORY DISTRESS. WITH IV ACCESS ON L WRIST #20G INTACT AND PATENT, TUBE FEEDING INFUSING NEPHRO AT 85 ML/HR. SAFETY MEASURES IN PLACE, SIDE RAILS UP, CALL LIGHT WITHIN REACH. BED IN LOWEST AND LOCKED POSITION. WILL CONTINUE PLAN OF CARE.
[2022-01-27 07:55] LABS: CALCIUM, SERUM 9.6 mg/dL (8.5-10.1); CARBON DIOXIDE 23 mmol/L (21-32); CHLORIDE 94 mmol/L (98-107); GLUCOSE 132 mg/dL (74-106); MAGNESIUM 3.3 mg/dL (1.8-2.4); PHOSPHORUS 4.9 mg/dL (2.5-4.9); POTASSIUM 4.6 mmol/L (3.5-5.1); SODIUM SERUM 130 mmol/L (136-145)
[2022-01-27 07:59] LABS: CREATININE 7.5 mg/dL (0.6-1.3)
[2022-01-27 08:00] LABS: IRON, SERUM 42 ug/dl (50-175); TOTAL IRON BINDING CAPACITY 168 ug/dl (250-450); UREA NITROGEN, BLOOD 113 mg/dL (7-18)
[2022-01-27] MEDS ORDERED: IV NS 0.9% 500 ML BAG IV ONE (09:00)
[2022-01-27] MEDS: METOPROLOL TARTRATE 25 MG TABLET PO SCH ×2 (09:00→16:57)
[2022-01-27] MEDS ORDERED: IV NS 0.9% 500 ML IV ONE (09:30)
--- NOTE | 2022-01-27 09:30 | NUR ---
BP 90/50. MD NOTIFIED. ORDERED TO HOLD LOPRESSOR 12.5MG AND GIVE 500ML NS BOLUS. FOLLOWED MD ORDERS.
[2022-01-27] MEDS: ASPIRIN 81 MG TAB.CHEW PO SCH (09:35)
[2022-01-27] MEDS: MEROPENEM 500 MG in IV NS 0.9% 50 ML IV SCH (09:35)
[2022-01-27] MEDS: CLOPIDOGREL BISULFATE 75 MG TABLET PO SCH (09:37)
[2022-01-27] MEDS: LINEZOLID 600 MG TABLET PO SCH ×2 (09:37→21:02)
[2022-01-27] MEDS: APIXABAN 5 MG TABLET PO SCH ×2 (09:37→16:54)
[2022-01-27] MEDS: DAKINS QUARTER STRENGTH (0.125%) 480 ML BOTTLE TOP SCH (09:38)
[2022-01-27] MEDS: Z GUARD REMEDY 4 OZ OINT TP SCH (09:38)
[2022-01-27] MEDS: THERAHONEY GEL 1.5 OZ TUBE TP SCH (09:38)
[2022-01-27] MEDS: SEVELAMER CARBONATE 800 MG POWD.PACK GT SCH ×3 (09:41→16:52)
[2022-01-27 12:00] VITALS: BP 88/50
[2022-01-27 12:01] LABS: BAND % (MANUAL) 2 % (0.0-5.0); LYMPHOCYTES % (MANUAL) 19 % (16-48); MONOCYTES % (MANUAL) 8 % (0-11.0); NEUTROPHILS % (MANUAL) 69 (42-76)
[2022-01-27 12:02] LABS: EOSINOPHILS % (MANUAL) 2 % (0-4)
[2022-01-27] MEDS: INSULIN REGULAR, HUMAN 100 UNIT/ML 3 ML VIAL SQ PRN (12:42)
[2022-01-27] MEDS: ALBUMIN 25% 25 GM in PREMIX 1 EA IV PRN (14:21)
[2022-01-27] MEDS: FAMOTIDINE (20 MG) 20 MG TABLET PO SCH (17:01)
--- NOTE | 2022-01-27 18:30 | NUR ---
MS RN CLOSING NOTES PATIENT REMAINS IN BED NONVERBAL OPENS EYES, ON RA WITH O2 SATURATION IN THE 97%. BREATHING EVEN AND UNLABORED. NO S/SX OF RESPIRATORY DISTRESS. WITH IV ACCESS ON L WRIST #20G INTACT AND PATENT, TUBE FEEDING TURNED ON INFUSING NEPHRO AT 85 ML/HR. SAFETY MEASURES IN PLACE, SIDE RAILS UP, CALL LIGHT WITHIN REACH. BED IN LOWEST AND LOCKED POSITION. WILL ENDORSE TO AM SHIFT NURSE.
[2022-01-27 20:00] VITALS: BP 103/49
[2022-01-27] MEDS: ATORVASTATIN 40 MG TABLET PO SCH (21:01)
[2022-01-28] MEDS: BLOOD SUGAR DIAGNOSTIC 1 EACH STRIP IN SCH ×5 (00:16→23:24)
--- NOTE | 2022-01-28 00:17 | NUR ---
RN NOTE BS CHECKED AT 93 MG/DL, NO COVERAGE GIVEN.
[2022-01-28 04:00] VITALS: BP 92/50
--- NOTE | 2022-01-28 05:24 | NUR ---
RN NOTE BS CHECKED AT 87 MG/DL, NO COVERAGE GIVEN. BP CHECKED AT 94/49. INFORMED DIGITAL MEDIA INTERN ESCOBAR WATTS, AWAITING FOR RESPONSE.
--- NOTE | 2022-01-28 05:41 | NUR ---
RN NOTE STEFANIE ORDERED 250 CC BOLUS OF NS FOR LOW BP, ORDER CARRIED OUT WILL CONT TO MONITOR.
--- NOTE | 2022-01-28 06:51 | NUR ---
MS RN CLOSING NOTES PATIENT IN BED A/O XO, NON VERBAL OPENS EYES. ON RA WITH O2 SATURATION IN THE 9G%. BREATHING EVEN AND UNLABORED. NO S/SX OF RESPIRATORY DISTRESS. WITH IV ACCESS ON L WRIST #20G INTACT AND PATENT, TUBE FEEDING TURNED ON RUNNING NEPHRO AT 85 ML/HR. SAFETY MEASURES IN PLACE, SIDE RAILS UP, ALL DUE MEDS GIVEN,KEPT DRY AND CLEAN, WOUND DRESSING DONE. CALL LIGHT WITHIN REACH. BED IN LOWEST AND LOCKED POSITION. WILL ENDORSE TO AM SHIFT NURSE.
--- NOTE | 2022-01-28 07:54 | NUR ---
RN OPENING NOTE PATIENT AWAKE IN BED RESTING. A/O X0. NO S/S OF PAIN NOTED AT THIS TIME. ON ROOM AIR, NO DISTRESS OR SHORTNESS OF BREATH NOTED. IV ACCESS L WRIST #20G, INTACT, PATENT AND FLUSHING WELL. FALL AND SAFETY MEASURES IN PLACE, BED ALARM ON, BED IN LOW AND LOCK POSITION, CALL LIGHT AND TABLE WITHIN EASY REACH, SIDE RAILS UP X2. WILL CONTINUE TO MONITOR.
[2022-01-28] MEDS: SEVELAMER CARBONATE 800 MG POWD.PACK GT SCH ×3 (08:27→17:22)
[2022-01-28] MEDS: LINEZOLID 600 MG TABLET PO SCH ×2 (08:28→21:28)
[2022-01-28] MEDS: ASPIRIN 81 MG TAB.CHEW PO SCH (08:28)
[2022-01-28] MEDS: CLOPIDOGREL BISULFATE 75 MG TABLET PO SCH (08:28)
[2022-01-28] MEDS: APIXABAN 5 MG TABLET PO SCH ×2 (08:29→17:24)
[2022-01-28 08:35] LABS: CALCIUM, SERUM 9.2 mg/dL (8.5-10.1); CARBON DIOXIDE 23 mmol/L (21-32); CHLORIDE 97 mmol/L (98-107); GLUCOSE 92 mg/dL (74-106); MAGNESIUM 3.3 mg/dL (1.8-2.4); PHOSPHORUS 4.7 mg/dL (2.5-4.9); SODIUM SERUM 134 mmol/L (136-145)
[2022-01-28 08:39] LABS: CREATININE 7.9 mg/dL (0.6-1.3); UREA NITROGEN, BLOOD 114 mg/dL (7-18)
[2022-01-28] MEDS: NEPRO 1,000 ML BOTTLE GT PRN (08:47)
[2022-01-28] MEDS: Z GUARD REMEDY 4 OZ OINT TP SCH (08:50)
[2022-01-28] MEDS: DAKINS QUARTER STRENGTH (0.125%) 480 ML BOTTLE TOP SCH (08:50)
[2022-01-28] MEDS: THERAHONEY GEL 1.5 OZ TUBE TP SCH (08:51)
[2022-01-28] MEDS: METOPROLOL TARTRATE 25 MG TABLET PO SCH ×2 (08:51→17:23)
--- NOTE | 2022-01-28 08:51 | NUR ---
RN NOTE PATIENT METOPROLOL WAS NOT GIVEN, PATIENT MIGHT HAVE DIALYSIS TODAY PER DIALYSIS NURSE.
[2022-01-28] MEDS: MEROPENEM 500 MG in IV NS 0.9% 50 ML IV SCH (10:38)
[2022-01-28 10:46] LABS: BASOPHILS # (AUTO) 0.1 K/uL (0.0-0.2); EOSINOPHILS % (AUTO) 4.3 % (0.0-6.0); HEMATOCRIT 23 % (39-51); HEMOGLOBIN 7.2 g/dL (13.5-17.5); LYMPHOCYTES # (AUTO) 1.2 K/uL (0.8-4.8); LYMPHOCYTES % (AUTO) 16.7 % (20.0-44.0); MEAN CORPUSCULAR HGB CONC 32 g/dl (31.0-36.0); MEAN CORPUSCULAR VOLUME 95 fL (80-96); MONOCYTES # (AUTO) 0.9 K/uL (0.1-1.30); MONOCYTES % (AUTO) 11.9 % (2.0-12.0); NEUTROPHILS # (AUTO) 4.8 K/uL (1.8-8.9); NEUTROPHILS % (AUTO) 66.1 % (43.0-81.0); PLATELET COUNT (AUTO) 302 K/uL (150-450); RED BLOOD CELL COUNT(AUTO) 2.38 MIL/uL (4.5-6.0); WHITE BLOOD COUNT (AUTO) 7.2 K/uL (4.3-11.0)
[2022-01-28 12:00] VITALS: BP 136/68
[2022-01-28 12:03] LABS: BAND % (MANUAL) 2 % (0.0-5.0); LYMPHOCYTES % (MANUAL) 12 % (16-48); NEUTROPHILS % (MANUAL) 73 (42-76)
[2022-01-28 12:04] LABS: EOSINOPHILS % (MANUAL) 5 % (0-4); MONOCYTES % (MANUAL) 8 % (0-11.0)
[2022-01-28 16:40] VITALS: BP 115/60
--- NOTE | 2022-01-28 16:50 | NUR ---
REENTERED ORDER FOR MRI FOR FACIAL ORBIT SINCE RADIOLOGY UNABLE TO SEE ORDER ON THEIR END,KIAN IT NOTIFIED,CLARIFIED CT ORDERED BY NERA TO R/O OSTEOMYELITIS,PER NERA IF UNABLE TO DO MRI OK TO DO CT INSTEAD.
--- NOTE | 2022-01-28 17:15 | NUR ---
PER [facility] ORDER FOR MRI RECEIVED BY RADIOLOGY ALREADY,FF. UP W/ MERLENE MYERS AND SPOKE W/ XOCHITL NOTIFIED NOT TO DO CT FACE IF ABLE TO DO MRI PER MD.WILL ENDORSED TO INCOMING CHARGE NURSE.
[2022-01-28] MEDS: FAMOTIDINE (20 MG) 20 MG TABLET PO SCH (17:22)
--- NOTE | 2022-01-28 17:40 | NUR ---
RN NOTE PATIENT 1700 ACCU-CHECK WAS DONE, GLUCOSE WAS 143, NO COVERAGE WAS GIVEN BECAUSE PATIENT FEEDING WAS STOP, PATIENT IS GOING FOR PROCEDURE, MARCELLO. CHARGE NURSE AWARE.
--- NOTE | 2022-01-28 18:35 | NUR ---
RN CLOSING NOTE PATIENT AWAKE IN BED RESTING. A/O X0. NO S/S OF PAIN NOTED AT THIS TIME. ON ROOM AIR, NO DISTRESS OR SHORTNESS OF BREATH NOTED. IV ACCESS L WRIST #20G, INTACT, PATENT AND FLUSHING WELL. SCHEDULE MEDICATIONS ADMINISTERED. PATIENT WAS TURNED AND REPOSITIONED PER PROTOCOL. FALL AND SAFETY MEASURES IN PLACE, BED ALARM ON, BED IN LOW AND LOCK POSITION, CALL LIGHT AND TABLE WITHIN EASY REACH, SIDE RAILS UP X2. WILL ENDORSE TO SHIRT SEWER.
--- NOTE | 2022-01-28 18:53 | NUR ---
pt. went for MRI, CT CANCELLED PER MD SINCE mri is done to r/o osteomyelitis.
--- NOTE | 2022-01-28 19:35 | NUR ---
1935 Picked up from MRI and returned to his room. Patient in stable condition.
[2022-01-28 20:00] VITALS: BP 126/59
--- NOTE | 2022-01-28 20:07 | NUR ---
RN NOTE PT CAME BACK FROM MRI AT 1935. NO SIGNS OF PAIN NOTED. RESTARTED GT FEEDING OF NEPRO, NO RESIDUALS NOTED. IV INTACT AND PATENT. WILL CONTINUE TO MONITOR.
[2022-01-28] MEDS: ATORVASTATIN 40 MG TABLET PO SCH (21:28)
[2022-01-29 04:00] VITALS: BP 119/64
[2022-01-29] MEDS: BLOOD SUGAR DIAGNOSTIC 1 EACH STRIP IN SCH ×4 (05:52→23:47)
[2022-01-29 06:24] LABS: BASOPHILS # (AUTO) 0.1 K/uL (0.0-0.2); BASOPHILS % (AUTO) 0.7 % (0.0-2.0); EOSINOPHILS % (AUTO) 4.7 % (0.0-6.0); HEMATOCRIT 22 % (39-51); HEMOGLOBIN 7.3 g/dL (13.5-17.5); LYMPHOCYTES # (AUTO) 1.1 K/uL (0.8-4.8); LYMPHOCYTES % (AUTO) 14.9 % (20.0-44.0); MEAN CORPUSCULAR HGB CONC 33 g/dl (31.0-36.0); MEAN CORPUSCULAR VOLUME 95 fL (80-96); MONOCYTES # (AUTO) 0.9 K/uL (0.1-1.30); MONOCYTES % (AUTO) 11.7 % (2.0-12.0); NEUTROPHILS # (AUTO) 5.2 K/uL (1.8-8.9); PLATELET COUNT (AUTO) 320 K/uL (150-450); RED BLOOD CELL COUNT(AUTO) 2.34 MIL/uL (4.5-6.0); WHITE BLOOD COUNT (AUTO) 7.6 K/uL (4.3-11.0)
--- NOTE | 2022-01-29 06:43 | NUR ---
RN NOTE PT TOLERATES ROOM AIR. NO SIGNS OF DISTRESS NOTED. O2 SAT AT 99%. TUBE FEEDING OFF AT 2200 RESTARTED AT 0600 WITH NO RESIDUALS. HOB ELEVATED. FSBS 89, NO INSULIN COVERAGE. PT WITH NO URINE OUTPUT, SCHEDULED FOR DIALYSIS TODAY. MRI RESULTS RELAYED TO RODENT EXTERMINATOR TAXATION ECONOMIST STEFANIE. TURNED AND REPOSITIONED. WILL ENDORSE TO NEXT SHIFT NURSE FOR JOSE.
[2022-01-29 07:07] LABS: CALCIUM, SERUM 9.7 mg/dL (8.5-10.1); CARBON DIOXIDE 23 mmol/L (21-32); CHLORIDE 97 mmol/L (98-107); GLUCOSE 107 mg/dL (74-106); MAGNESIUM 3.2 mg/dL (1.8-2.4); PHOSPHORUS 4.9 mg/dL (2.5-4.9); POTASSIUM 5.3 mmol/L (3.5-5.1); SODIUM SERUM 132 mmol/L (136-145)
[2022-01-29 07:11] LABS: UREA NITROGEN, BLOOD 119 mg/dL (7-18)
[2022-01-29 07:12] LABS: CREATININE 8.6 mg/dL (0.6-1.3)
--- NOTE | 2022-01-29 07:40 | NUR ---
RN OPEN NOTE RECEIVED PATIENT IN BED SLEEPING BUT EASILY AROUSABLE TO TOUCH AND VOICE, ON RA WITH O2 SATURATION IN THE 90S. BREATHING EVEN AND UNLABORED. NO S/SX OF RESPIRATORY DISTRESS. WITH IV ACCESS ON L WRIST #20G INTACT AND PATENT, TUBE FEEDING RUNNING NEPHRO AT 85 ML/HR. SAFETY MEASURES IN PLACE, SIDE RAILS UP, CALL LIGHT WITHIN REACH. BED IN LOWEST AND LOCKED POSITION. WILL CONTINUE TO MONITOR THROUGHOUT THE SHIFT.
[2022-01-29 08:00] VITALS: BP 108/56
[2022-01-29] MEDS: CLOPIDOGREL BISULFATE 75 MG TABLET PO SCH (08:47)
[2022-01-29] MEDS: LINEZOLID 600 MG TABLET PO SCH ×2 (08:47→21:54)
[2022-01-29] MEDS: ASPIRIN 81 MG TAB.CHEW PO SCH (08:47)
[2022-01-29] MEDS: METOPROLOL TARTRATE 25 MG TABLET PO SCH ×2 (08:48→16:51)
[2022-01-29] MEDS: APIXABAN 5 MG TABLET PO SCH ×2 (08:50→16:50)
[2022-01-29] MEDS: SEVELAMER CARBONATE 800 MG POWD.PACK GT SCH ×3 (08:56→16:49)
[2022-01-29] MEDS: MEROPENEM 500 MG in IV NS 0.9% 50 ML IV SCH (09:00)
[2022-01-29] MEDS: THERAHONEY GEL 1.5 OZ TUBE TP SCH (09:40)
[2022-01-29] MEDS: Z GUARD REMEDY 4 OZ OINT TP SCH (09:40)
[2022-01-29] MEDS: DAKINS QUARTER STRENGTH (0.125%) 480 ML BOTTLE TOP SCH (09:41)
--- NOTE | 2022-01-29 10:00 | NUR ---
RN NOTES RECEIVED PT FROM KELLY HERZOG FOR CONTINUITY OF CARE
[2022-01-29] MEDS: ALBUMIN 25% 25 GM in PREMIX 1 EA IV PRN (11:59)
[2022-01-29 12:00] VITALS: BP 97/52
[2022-01-29 16:00] VITALS: BP 110/57
[2022-01-29] MEDS: FAMOTIDINE (20 MG) 20 MG TABLET PO SCH (18:02)
--- NOTE | 2022-01-29 18:57 | NUR ---
RN NOTES NO SIGNIFCANT CHANGES NOTED ON THIS SHIFT, WILL ENDORSE TO FRONT DESK HOST NURSE FOR CONTINUITY OF CARE.
[2022-01-29 20:00] VITALS: BP 106/54
--- NOTE | 2022-01-29 20:00 | NUR ---
RN NOTE RECEIVED PT IN BED, RESPONDS TO STIMULI. NOT IN ANY DISTRESS. GT PATENT AND INTACT, ON TUBE FEEDING, NO RESIDUALS NOTED. HOB ELEVATED. WOUND DRESSINGS INTACT, TURNED AND REPOSITIONED WILL CONTINUE TO MONITOR.
[2022-01-29] MEDS: ATORVASTATIN 40 MG TABLET PO SCH (21:54)
[2022-01-30] VITALS (8 sets, daily range): BP systolic 97–157; BP diastolic 47–81
--- NOTE | 2022-01-30 05:15 | NUR ---
RN NOTE PT NOTED WITH BRIGHT RED BLOOD IN THE STOOL. NOTIFIED SACK DEPARTMENT SUPERVISOR AMANDA WATTS. ORDERED STOOL OCCULT AND TO HOLD ELIQUIS AND AND PLAVIX IN AM.
[2022-01-30] MEDS: NEPRO 1,000 ML BOTTLE GT PRN (05:47)
[2022-01-30] MEDS: BLOOD SUGAR DIAGNOSTIC 1 EACH STRIP IN SCH ×3 (06:22→18:03)
--- NOTE | 2022-01-30 06:45 | NUR ---
RN NOTE PT TOLERATES ROOM AIR. NOT IN ANY DISTRESS. REMAIN AFEBRILE. RESTARTED TUBE FEEDING AT 0600, FSBS 80, NO INSULIN COVERAGE. STOOL SAMPLE SENT TO LAB. WOUND TX WERE DONE ORDERED, TURNED AND REPOSITIONED. WILL ENDORSE TO NEXT SHIFT NURSE FOR JOSE.
[2022-01-30] MEDS: ALBUMIN 25% 25 GM in PREMIX 1 EA IV PRN (08:12)
--- NOTE | 2022-01-30 08:19 | NUR ---
MED-SURG AGRICULTURE INTERN OPEN NOTE PATIENT IN BED. PATIENT IS OBTUNDED AND NONVERBAL. PATIENT IS ON ROOM AIR TOLERATING WELL.PATIENT HAS WOUND ON POSTERIOR HEAD, LEFT ANKLE/HEEL. PATIENT IS IN UPRIGHT POSITION. PATIENT HAS IV ACCESS ON LEFT WRIST 20 GAUGE. PATIENT HAS GTUBE INTACT AND IN PLACE, SIDE RAILS UP, CALL LIGHT WITHIN REACH. BED IN LOWEST AND LOCKED POSITION. WILL CONTINUE TO MONITOR THROUGHOUT THE SHIFT.
--- NOTE | 2022-01-30 08:22 | NUR ---
DIALYSIS NURSE HERE
--- NOTE | 2022-01-30 08:22 | NUR ---
HOLDING MORNING MEDS DUE TO DIALYSIS
--- NOTE | 2022-01-30 08:22 | NUR ---
CRITICAL LAB B 6.7. PREVIOUS B 7.[address] HENRY. LAB WILL REDRAW FOR CONFIRMATION Addendum: 01/30/22 at 0834 by ZABRINA FRANKLIN RN DR. ELAINE MONTOYA
[2022-01-30 08:37] LABS: OCCULT BLOOD STOOL POSITIVE (NEGATIVE)
[2022-01-30 08:59] LABS: BASOPHILS # (AUTO) 0.1 K/uL (0.0-0.2); EOSINOPHILS % (AUTO) 3.9 % (0.0-6.0); LYMPHOCYTES # (AUTO) 0.8 K/uL (0.8-4.8); LYMPHOCYTES % (AUTO) 14.6 % (20.0-44.0); MEAN CORPUSCULAR HGB CONC 32 g/dl (31.0-36.0); MEAN CORPUSCULAR VOLUME 96 fL (80-96); MONOCYTES # (AUTO) 0.6 K/uL (0.1-1.30); NEUTROPHILS % (AUTO) 70.5 % (43.0-81.0); PLATELET COUNT (AUTO) 276 K/uL (150-450); WHITE BLOOD COUNT (AUTO) 5.7 K/uL (4.3-11.0)
[2022-01-30] MEDS: APIXABAN 5 MG TABLET PO SCH ×2 (09:00→16:35)
[2022-01-30] MEDS: METOPROLOL TARTRATE 25 MG TABLET PO SCH ×2 (09:00→17:00)
[2022-01-30] MEDS: LINEZOLID 600 MG TABLET PO SCH ×2 (09:00→21:25)
[2022-01-30] MEDS: ASPIRIN 81 MG TAB.CHEW PO SCH (09:00)
[2022-01-30] MEDS: CLOPIDOGREL BISULFATE 75 MG TABLET PO SCH (09:00)
[2022-01-30] MEDS: SEVELAMER CARBONATE 800 MG POWD.PACK GT SCH ×3 (09:00→18:34)
[2022-01-30 09:13] LABS: HEMATOCRIT 19 % (39-51); HEMOGLOBIN 6.2 g/dL (13.5-17.5)
--- NOTE | 2022-01-30 09:19 | NUR ---
CRITICAL LAB HGB 6.2, HCT 19 DR. HENRY MADE AWARE. ORDERED TRANSFUSE 1 UNIT WITH HD
[2022-01-30] MEDS: MEROPENEM 500 MG in IV NS 0.9% 50 ML IV SCH (10:46)
[2022-01-30 10:51] LABS: CALCIUM, SERUM 8.7 mg/dL (8.5-10.1); CARBON DIOXIDE 24 mmol/L (21-32); CHLORIDE 97 mmol/L (98-107); GLUCOSE 113 mg/dL (74-106); MAGNESIUM 2.8 mg/dL (1.8-2.4); POTASSIUM 4.8 mmol/L (3.5-5.1); SODIUM SERUM 133 mmol/L (136-145); UREA NITROGEN, BLOOD 77 mg/dL (7-18)
[2022-01-30 11:40] LABS: BAND % (MANUAL) 4 % (0.0-5.0); EOSINOPHILS % (MANUAL) 2 % (0-4); LYMPHOCYTES % (MANUAL) 15 % (16-48); MONOCYTES % (MANUAL) 8 % (0-11.0); NEUTROPHILS % (MANUAL) 71 (42-76)
[2022-01-30] MEDS: DAKINS QUARTER STRENGTH (0.125%) 480 ML BOTTLE TOP SCH (11:49)
[2022-01-30] MEDS: Z GUARD REMEDY 4 OZ OINT TP SCH (11:49)
[2022-01-30] MEDS: THERAHONEY GEL 1.5 OZ TUBE TP SCH (11:50)
--- NOTE | 2022-01-30 13:33 | NUR ---
SPOKE WITH PATIENT DAUGHTER TO GET CONSENT FOR BLOOD TRANSFUSION. PATIENT DAUGHTER AGREED TO GIVE CONSENT FOR BLOOD TRANSFUSION
--- NOTE | 2022-01-30 14:25 | NUR ---
SPOKE WITH LAB REGARDING IF BLOOD IS READY FOR PICKUP. NOT READY YET.WILL FOLLOW UP Addendum: 01/30/22 at 1520 by ZABRINA FRANKLIN RN called lab to followup, said to CBC. will follow up
[2022-01-30 15:47] LABS: BASOPHILS # (AUTO) 0.1 K/uL (0.0-0.2); LYMPHOCYTES # (AUTO) 0.9 K/uL (0.8-4.8); MONOCYTES % (AUTO) 11.5 % (2.0-12.0); NEUTROPHILS # (AUTO) 3.8 K/uL (1.8-8.9); PLATELET COUNT (AUTO) 281 K/uL (150-450)
[2022-01-30 16:07] LABS: LYMPHOCYTES % (AUTO) 15.6 % (20.0-44.0); MEAN CORPUSCULAR HGB CONC 32 g/dl (31.0-36.0); MEAN CORPUSCULAR VOLUME 96 fL (80-96); MONOCYTES # (AUTO) 0.7 K/uL (0.1-1.30); NEUTROPHILS % (AUTO) 67.9 % (43.0-81.0); RED BLOOD CELL COUNT(AUTO) 2.14 MIL/uL (4.5-6.0); WHITE BLOOD COUNT (AUTO) 5.7 K/uL (4.3-11.0)
[2022-01-30 16:14] LABS: HEMATOCRIT 20 % (39-51); HEMOGLOBIN 6.6 g/dL (13.5-17.5)
--- NOTE | 2022-01-30 16:16 | NUR ---
spoke with Linda from lab. called to say Hgb 6.6 and HCT 20. lab said they need to do a 2nd type and screen because there was an issue with blood. will followup
[2022-01-30 16:52] LABS: EOSINOPHILS % (MANUAL) 1 % (0-4); LYMPHOCYTES % (MANUAL) 18 % (16-48); MONOCYTES % (MANUAL) 5 % (0-11.0); NEUTROPHILS % (MANUAL) 76 (42-76)
--- NOTE | 2022-01-30 17:50 | NUR ---
transfusing 1 unit of RBC
[2022-01-30] MEDS: FAMOTIDINE (20 MG) 20 MG TABLET PO SCH (18:30)
--- NOTE | 2022-01-30 19:20 | NUR ---
MED-SURG CENTRAL SUPPLY NURSE CLOSING NOTE PATIENT IN BED. PATIENT IS OBTUNDED AND NONVERBAL. PATIENT IS ON ROOM AIR TOLERATING WELL.PATIENT HAS WOUND ON POSTERIOR HEAD, LEFT ANKLE/HEEL. PATIENT IS IN UPRIGHT POSITION. PATIENT HAS IV ACCESS ON LEFT WRIST 20 GAUGE.PATIENT HAS IV SITE ON LEFT FOREARM 22 GAUGE. IV PATENT AND FLUSHING WELL. PATIENT HAD HEMODIALYSIS TODAY. DIALYSIS NURSE REMOVED 1 L. PATIENT IS CURRENTLY TRANSFUSING BLOOD 1 UNIT. AT THIS TIME, TOLERATING WELL WITH NO ADVERSE REACTIONS. PATIENT HGB LESS THAN 7.PATIENT HAS GTUBE INTACT AND PATENT. GTUBE CURRENTLY RUNNING NEPHRO 85 ML/HR. ALL SAFETY MEASURES IN PLACE, SIDE RAILS UP X2, CALL LIGHT WITHIN REACH. BED IN LOWEST AND LOCKED POSITION. WILL ENDORSE TO EXECUTIVE COMMUNICATIONS MANAGER ABOUT BLOOD TRANSFUSION.
--- NOTE | 2022-01-30 19:45 | NUR ---
MS RN OPENING NOTE RECEIVED PATIENT IN BED; OBTUNDED AND NONVERBAL. BREATHING IS EVEN AND NONLABORED. ON ROOM AIR; TOLERATING WELL. WITH IV ACCESS ON LEFT FA G#18 AND LEFT HAND G#20; PATENT, INTACT AND FLUSHES WELL. WITH ONGOING BLOOD TRANSFUSION OF 1 UNIT PRBC REGULATED @ 125 ML/HR; TOLERATING WELL WITH NO ADVERSE REACTIONS. ON NEPRO GTUBE FEEDING; INTACT AND PATENT RUNNING @ 85 ML/HR. SAFETY AND ASPIRATION MEASURES IMPLEMENTED: HEAD OF BED ELEVATED TO 30 DEGREES, CALL LIGHT AND TABLE WITHIN REACH, SIDE RAILS UP X2, BED IN LOWEST AND LOCKED POSITION. WILL CONTINUE TO MONITOR
[2022-01-30] MEDS ORDERED: LINEZOLID 600 MG TABLET ONE (21:18)
[2022-01-30] MEDS: ATORVASTATIN 40 MG TABLET PO SCH (21:25)
[2022-01-31] MEDS: BLOOD SUGAR DIAGNOSTIC 1 EACH STRIP IN SCH ×5 (00:51→23:28)
[2022-01-31 04:00] VITALS: BP 136/81
--- NOTE | 2022-01-31 07:15 | NUR ---
MS RN CLOSING NOTE PATIENT IN BED; OBTUNDED AND NONVERBAL. BREATHING IS EVEN AND NONLABORED. ON ROOM AIR; TOLERATING WELL. WITH IV ACCESS ON LEFT FA G#18 AND LEFT HAND G#20; PATENT, INTACT AND FLUSHES WELL. WITH ONGOING BLOOD TRANSFUSION OF 1 UNIT PRBC REGULATED @ 125 ML/HR; TOLERATING WELL WITH NO ADVERSE REACTIONS. ON NEPRO GTUBE FEEDING; INTACT AND PATENT RUNNING @ 85 ML/HR. SAFETY AND ASPIRATION MEASURES IN PLACE: HEAD OF BED ELEVATED TO 30 DEGREES, CALL LIGHT AND TABLE WITHIN REACH, SIDE RAILS UP X2, BED IN LOWEST AND LOCKED POSITION. ENDORSED TO MORNING SHIFT FOR JOSE
[2022-01-31 07:19] LABS: BASOPHILS # (AUTO) 0.1 K/uL (0.0-0.2); EOSINOPHILS % (AUTO) 4.6 % (0.0-6.0); HEMATOCRIT 27 % (39-51); HEMOGLOBIN 8.7 g/dL (13.5-17.5); LYMPHOCYTES % (AUTO) 16.9 % (20.0-44.0); MEAN CORPUSCULAR HGB CONC 33 g/dl (31.0-36.0); MEAN CORPUSCULAR VOLUME 94 fL (80-96); MONOCYTES # (AUTO) 0.7 K/uL (0.1-1.30); MONOCYTES % (AUTO) 12.8 % (2.0-12.0); NEUTROPHILS # (AUTO) 3.7 K/uL (1.8-8.9); NEUTROPHILS % (AUTO) 64.7 % (43.0-81.0); PLATELET COUNT (AUTO) 275 K/uL (150-450); RED BLOOD CELL COUNT(AUTO) 2.82 MIL/uL (4.5-6.0); WHITE BLOOD COUNT (AUTO) 5.8 K/uL (4.3-11.0)
[2022-01-31 07:32] LABS: CALCIUM, SERUM 9.3 mg/dL (8.5-10.1); CARBON DIOXIDE 27 mmol/L (21-32); CHLORIDE 96 mmol/L (98-107); CREATININE 4.7 mg/dL (0.6-1.3); GLUCOSE 91 mg/dL (74-106); MAGNESIUM 2.6 mg/dL (1.8-2.4); PHOSPHORUS 4.7 mg/dL (2.5-4.9); POTASSIUM 3.9 mmol/L (3.5-5.1); SODIUM SERUM 132 mmol/L (136-145); UREA NITROGEN, BLOOD 51 mg/dL (7-18)
[2022-01-31] MEDS: CLOPIDOGREL BISULFATE 75 MG TABLET PO SCH (09:00)
[2022-01-31] MEDS: METOPROLOL TARTRATE 25 MG TABLET PO SCH ×2 (09:00→17:57)
[2022-01-31] MEDS: APIXABAN 5 MG TABLET PO SCH (09:00)
[2022-01-31] MEDS: SEVELAMER CARBONATE 800 MG POWD.PACK GT SCH ×3 (09:29→17:57)
[2022-01-31] MEDS: DAKINS QUARTER STRENGTH (0.125%) 480 ML BOTTLE TOP SCH (09:30)
[2022-01-31] MEDS: LINEZOLID 600 MG TABLET PO SCH ×2 (09:30→21:10)
[2022-01-31] MEDS: ASPIRIN 81 MG TAB.CHEW PO SCH (09:30)
[2022-01-31] MEDS: Z GUARD REMEDY 4 OZ OINT TP SCH (09:30)
[2022-01-31] MEDS: THERAHONEY GEL 1.5 OZ TUBE TP SCH (09:30)
[2022-01-31] MEDS: MEROPENEM 500 MG in IV NS 0.9% 50 ML IV SCH (10:25)
[2022-01-31 12:00] VITALS: BP 100/52
[2022-01-31] MEDS: NEPRO 1,000 ML BOTTLE GT PRN (14:43)
--- NOTE | 2022-01-31 15:00 | NUR ---
MD COMMUNICATION RN SPOKE TO DO ELAINE WHILE DOING ROUNDS, GAVE ORDERS: D/C ELIQUIS AND NOTIFY HER IF BLACK STOOL PASSES. RN ACKNOWLEDGED AND WILL EXECUTE ORDERS.
[2022-01-31] MEDS: FAMOTIDINE (20 MG) 20 MG TABLET PO SCH (17:57)
--- NOTE | 2022-01-31 19:10 | NUR ---
RN NOTES RECEIVED PT FOR CONTINUITY OF CARE. PATIENT OBTUNDED IN NO S/SX OF ACUTE DISTRESS AT THIS TIME; CURRENTLY ON ROOM AIR; WITH 02 SAT >95% AT THIS TIME. IV ACCESS BOTH PATENT AND INTACT AND FLUSHING WELL. WITH TUBE FEEDING RUNNING ORDERED. PT TOLERATES WELL. PT MED SURG STATUS. WILL ENSURE SAFETY MEASURES WITHIN THE SHIFT. PATIENT BED ALARM IS ON. HEAD OF BED ELEVATED. BED IS LOCKED, IN LOWEST POSITION AND SIDE RAILS UP. CALL LIGHT WITHIN REACH OF THE PATIENT. APPLICABLE ISOLATION PRECAUTIONS IN PLACE. WILL CONTINUE TO MONITOR AND REASSESS FOR ANY CHANGES AND WILL CARRY OUT ANY ONGOING AND ACTIVE MD ORDER.
--- NOTE | 2022-01-31 19:41 | NUR ---
RN NOTES PT FOUND SEMI FOWLERS DISPLAYING NO S/S OF DISTRESS, FLACC = 0 AND BREATHING IS EVEN AND UNLABORED ON RA. PT IS OBTUNDED AND CONTRACTED. L HAND 20G IS PATIENT AND INTACT. SBAR AND REPORT GIVEN TO ULTRASOUND APPLICATIONS SPECIALIST RN, ALL QUESTIONS ANSWERED. SAFETY MEASURES IN PLACE, BED LOCKED AND IN LOWEST POSITION, SIDE RAILS UPX2, CALL LIGHT WITHIN REACH, BED ALARM ARMED.
[2022-01-31 20:00] VITALS: BP 114/68
[2022-01-31] MEDS: ATORVASTATIN 40 MG TABLET PO SCH (21:10)
[2022-01-31] MEDS: INSULIN REGULAR, HUMAN 100 UNIT/ML 3 ML VIAL SQ PRN (23:29)
[2022-02-01 04:00] VITALS: BP 115/61
--- NOTE | 2022-02-01 04:00 | NUR ---
RN NOTES PATIENT REMAINED TO BE IN NO SIGNS OF ACUTE RESPIRATORY DISTRESS, SAFE ENVIRONMENT MAINTAINED FOR PT. AM PATIENT CARE DONE AND WOUND CARE DONE. WILL CONTINUE TO MONITOR AND REASSESS FOR ANY CHANGES THROUGHOUT THE SHIFT.
[2022-02-01] MEDS: NEPRO 1,000 ML BOTTLE GT PRN (05:25)
[2022-02-01] MEDS: BLOOD SUGAR DIAGNOSTIC 1 EACH STRIP IN SCH ×3 (05:25→17:31)
[2022-02-01] MEDS: INSULIN REGULAR, HUMAN 100 UNIT/ML 3 ML VIAL SQ PRN (05:27)
--- NOTE | 2022-02-01 06:44 | NUR ---
RN CLOSING NOTE: PATIENT REMAINS IN ROOM IN NO SIGNS OF RESPIRATORY DISTRESS, PATIENT STILL ON ROOM AIR;TOLERATING WELL SATURATING @ >95% SP02. MED SURG STATUS. ON DROPLET PREC.FORHD TODAY. SAFETY MEASURES IMPLEMENTED, BED IN LOWEST POSITION, LOCKED, SIDE RAILS UP, CALL LIGHT WITHIN REACH. ALL NEEDS AND ORDERS ADDRESSED DURING THE SHIFT. IV ACCESS MAINTAINED INTACT, SECURED AND FLUSHING WELL. TUBE FEEDING RUNNING ORDERED. ALL DUE MEDS GIVEN ORDERED & SCHEDULED ; PATIENT TOLERATED WELL. PATIENT KEPT CLEAN AND COMFORTABLE WITHIN THE SHIFT. PATIENT ENDORSED TO INCOMING SHIFT RN WITH STABLE VITAL SIGN AND FOR CONTINUITY OF CARE.
--- NOTE | 2022-02-01 07:00 | NUR ---
MS RN OPENING NOTES PATIENT LAYING IN BED, OBTUNDED, TOLERATING WELL ON ROOM AIR WITH NO S/S RESPIRATORY DISTRESS. NO COMPLAINTS OF PAIN OR DISCOMFORT AT THIS TIME. PATIENT TO RECEIVE HD TODAY. L FA # 18 G SL AND L HAND 20 G SL CLEAN, INTACT, AND FLUSHING WELL. L CHEST WALL HD CATH CLEAN AND INTACT. G-TUBE IN PLACE WITH NEPHRO RUNNING @ 85 ML/HR. SAFETY MEASURES IN PLACE: BED IN LOWEST LOCKED POSITION, SIDE RAILS UP X 2, CALL LIGHT WITHIN REACH. WILL CONTINUE TO MONITOR.
[2022-02-01 08:15] LABS: BASOPHILS # (AUTO) 0.1 K/uL (0.0-0.2); BASOPHILS % (AUTO) 0.6 % (0.0-2.0); EOSINOPHILS % (AUTO) 4.4 % (0.0-6.0); HEMATOCRIT 27 % (39-51); HEMOGLOBIN 8.7 g/dL (13.5-17.5); LYMPHOCYTES # (AUTO) 1.3 K/uL (0.8-4.8); LYMPHOCYTES % (AUTO) 14.8 % (20.0-44.0); MEAN CORPUSCULAR HGB CONC 33 g/dl (31.0-36.0); MEAN CORPUSCULAR VOLUME 96 fL (80-96); MONOCYTES % (AUTO) 11.8 % (2.0-12.0); NEUTROPHILS # (AUTO) 5.9 K/uL (1.8-8.9); NEUTROPHILS % (AUTO) 68.4 % (43.0-81.0); PLATELET COUNT (AUTO) 279 K/uL (150-450); RED BLOOD CELL COUNT(AUTO) 2.79 MIL/uL (4.5-6.0); WHITE BLOOD COUNT (AUTO) 8.6 K/uL (4.3-11.0)
[2022-02-01] MEDS: METOPROLOL TARTRATE 25 MG TABLET PO SCH ×2 (08:19→17:00)
[2022-02-01] MEDS: CLOPIDOGREL BISULFATE 75 MG TABLET PO SCH (08:19)
[2022-02-01 08:30] LABS: CALCIUM, SERUM 9.5 mg/dL (8.5-10.1); CARBON DIOXIDE 27 mmol/L (21-32); CHLORIDE 95 mmol/L (98-107); GLUCOSE 104 mg/dL (74-106); MAGNESIUM 2.8 mg/dL (1.8-2.4); POTASSIUM 3.9 mmol/L (3.5-5.1); SODIUM SERUM 133 mmol/L (136-145); UREA NITROGEN, BLOOD 73 mg/dL (7-18)
[2022-02-01] MEDS: LINEZOLID 600 MG TABLET PO SCH ×2 (09:26→21:14)
[2022-02-01] MEDS: SEVELAMER CARBONATE 800 MG POWD.PACK GT SCH ×3 (09:26→17:31)
[2022-02-01] MEDS: THERAHONEY GEL 1.5 OZ TUBE TP SCH (09:27)
[2022-02-01] MEDS: DAKINS QUARTER STRENGTH (0.125%) 480 ML BOTTLE TOP SCH (09:28)
[2022-02-01] MEDS: Z GUARD REMEDY 4 OZ OINT TP SCH (09:28)
[2022-02-01] MEDS: ASPIRIN 81 MG TAB.CHEW PO SCH (09:30)
[2022-02-01] MEDS: MEROPENEM 500 MG in IV NS 0.9% 50 ML IV SCH (10:17)
[2022-02-01 12:00] VITALS: BP 115/61
[2022-02-01] MEDS: FAMOTIDINE (20 MG) 20 MG TABLET PO SCH (17:31)
--- NOTE | 2022-02-01 19:45 | NUR ---
RN OPENING NOTES RECEIVED PATIENT IN BED, OBTUNDED, OPEN BOTH EYES. ON ROOM AIR AND PT TOLERATED WELL. IV ACCESS ON LFA # 18G AND L HAND #20G INTACT AND PATENT. NO S/S OF INFILTRATIONS. LT CHEST WALL HD CATH INTACT AND COVERED WITH DRY DRESSING. G-TUBE FEEDING WELL TOLERATED. RUNNING WITH NEPHRO RUNNING @ 85 ML/HR. WILL TURN OFF AT 2200 AND START ON 0600. NO FACIAL GRIMACING NOTED. NO ACUTE DISTRESS. ALL SAFETY MEASURES IN PLACE: BED IN LOWEST POSITION AND LOCKED. SIDE RAILS UP X 3, PLACE CALL LIGHT WITHIN REACH. WILL CONTINUE TO MONITOR.
[2022-02-01 20:00] VITALS: BP 99/51
[2022-02-01] MEDS: ATORVASTATIN 40 MG TABLET PO SCH (21:14)
[2022-02-02] MEDS: BLOOD SUGAR DIAGNOSTIC 1 EACH STRIP IN SCH ×4 (00:47→18:05)
--- NOTE | 2022-02-02 00:47 | NUR ---
RN NOTES: PT'S BLOOD SUGAR 81. NO COVERAGE NEEDED. NO S/S OF HYPER/HYPOGLYCEMIA. WILL CONTINUE TO MONITOR
[2022-02-02 04:00] VITALS: BP 102/47
[2022-02-02] MEDS: NEPRO 1,000 ML BOTTLE GT PRN ×2 (06:00→19:24)
[2022-02-02] MEDS: INSULIN REGULAR, HUMAN 100 UNIT/ML 3 ML VIAL SQ PRN ×2 (06:26→12:37)
--- NOTE | 2022-02-02 06:27 | NUR ---
RN CLOSING NOTES PATIENT IN BED, OBTUNDED, OPEN BOTH EYES. ON ROOM AIR AND PT TOLERATED WELL. O2 SAT 100%. IV ACCESS ON LFA # 18G AND L HAND #20G INTACT AND PATENT. NO S/S OF INFILTRATIONS. LT CHEST WALL HD CATH INTACT AND COVERED WITH DRY DRESSING. G-TUBE FEEDING WELL TOLERATED. RUNNING WITH NEPHRO RUNNING @ 85 ML/HR. STARTED FEEDING ON 0600. NO FACIAL GRIMACING NOTED. NO ACUTE DISTRESS. ALL DUE MEDS GIVEN ORDERED. BLOOD SUGAR 97. NO COVERAGE NEEDED. NO S/S OF HYPER/HYPOGLYCEMIA. ALL SAFETY MEASURES IN PLACE: BED IN LOWEST POSITION AND LOCKED. SIDE RAILS UP X 3, PLACE CALL LIGHT WITHIN REACH. WILL ENDORSE TO MORNING SHIFT NURSE.
--- NOTE | 2022-02-02 07:30 | NUR ---
MS RN OPENING NOTES RECEIVED PATIENT IN BED, OBTUNDED, OPEN BOTH EYES. ON ROOM AIR AND PT TOLERATED WELL. IV ACCESS ON LFA # 18G AND L HAND #20G INTACT AND PATENT. NO S/S OF INFILTRATIONS. LT CHEST WALL HD CATH INTACT AND COVERED WITH DRY DRESSING. G-TUBE FEEDING WELL TOLERATED. RUNNING WITH NEPHRO RUNNING @ 85 ML/HR.X 16 HOURS/DAY TO TURN OFF AT 2200 AND START ON 0600. NO FACIAL GRIMACING NOTED. NO ACUTE DISTRESS. ALL SAFETY MEASURES IN PLACE: BED IN LOWEST POSITION AND LOCKED. SIDE RAILS UP X 3, PLACE CALL LIGHT WITHIN REACH. WILL CONTINUE TO MONITOR.
[2022-02-02] MEDS: METOPROLOL TARTRATE 25 MG TABLET PO SCH ×2 (09:00→17:00)
[2022-02-02] MEDS: CLOPIDOGREL BISULFATE 75 MG TABLET PO SCH (09:00)
[2022-02-02] MEDS: ASPIRIN 81 MG TAB.CHEW PO SCH (09:00)
[2022-02-02] MEDS: SEVELAMER CARBONATE 800 MG POWD.PACK GT SCH ×3 (09:20→17:34)
[2022-02-02] MEDS: DAKINS QUARTER STRENGTH (0.125%) 480 ML BOTTLE TOP SCH (09:22)
[2022-02-02] MEDS: Z GUARD REMEDY 4 OZ OINT TP SCH (09:23)
[2022-02-02] MEDS: THERAHONEY GEL 1.5 OZ TUBE TP SCH (09:23)
[2022-02-02] MEDS: MEROPENEM 500 MG in IV NS 0.9% 50 ML IV SCH (10:51)
[2022-02-02 12:00] VITALS: BP 97/47
[2022-02-02 12:18] LABS: BASOPHILS # (AUTO) 0.1 K/uL (0.0-0.2); BASOPHILS % (AUTO) 0.8 % (0.0-2.0); EOSINOPHILS % (AUTO) 4.7 % (0.0-6.0); HEMATOCRIT 24 % (39-51); HEMOGLOBIN 7.6 g/dL (13.5-17.5); LYMPHOCYTES # (AUTO) 1.1 K/uL (0.8-4.8); LYMPHOCYTES % (AUTO) 14.1 % (20.0-44.0); MEAN CORPUSCULAR HGB CONC 33 g/dl (31.0-36.0); MEAN CORPUSCULAR VOLUME 96 fL (80-96); MONOCYTES % (AUTO) 12.9 % (2.0-12.0); NEUTROPHILS # (AUTO) 5.3 K/uL (1.8-8.9); NEUTROPHILS % (AUTO) 67.5 % (43.0-81.0); PLATELET COUNT (AUTO) 218 K/uL (150-450); RED BLOOD CELL COUNT(AUTO) 2.45 MIL/uL (4.5-6.0); WHITE BLOOD COUNT (AUTO) 7.8 K/uL (4.3-11.0)
--- NOTE | 2022-02-02 14:45 | NUR ---
RN NOTES: RECEIVED A CALL FROM DR ANDREA FOR GI FOLLOW UP WHO SAID TO HOLD FEEDING MIDNIGHT FOR POSSIBLE EGD TOMORROW AND TO OBTAIN CONSENT CALLED DAUGHTER BRANDY AND OBTAINED CONSENT
--- NOTE | 2022-02-02 17:00 | NUR ---
RN NOTES: PROVIDED PM CARE , NOTED WITH LARGE BM NORMAL COLOR LIGHT BROWN, WOUND CARE PROVIDED, REMAINED IN STABLE CONDITION
[2022-02-02] MEDS: FAMOTIDINE (20 MG) 20 MG TABLET PO SCH (17:34)
--- NOTE | 2022-02-02 19:42 | NUR ---
MS RN CLOSING NOTES PATIENT IN BED, OBTUNDED, OPEN RIGHT EYES. ON ROOM AIR AND PT TOLERATED WELL. O2 SAT 100%. IV ACCESS ON LFA # 18G AND L HAND #20G INTACT AND PATENT. NO S/S OF INFILTRATIONS. LT CHEST WALL HD CATH INTACT AND COVERED WITH DRY DRESSING. G-TUBE FEEDING WELL TOLERATED. RUNNING WITH NEPHRO RUNNING @ 85 ML/HR. . NO FACIAL GRIMACING NOTED. NO ACUTE DISTRESS. ALL DUE MEDS GIVEN ORDERED. BLOOD SUGAR 94. NO COVERAGE NEEDED. NO S/S OF HYPER/HYPOGLYCEMIA. ALL SAFETY MEASURES IN PLACE: BED IN LOWEST POSITION AND LOCKED. SIDE RAILS UP X 3, PLACE CALL LIGHT WITHIN REACH. WILL ENDORSE TO [employer]RA[employer]O SETTER NURSE.
[2022-02-02 20:00] VITALS: BP 128/41
[2022-02-02] MEDS: ATORVASTATIN 40 MG TABLET PO SCH (22:35)
[2022-02-03] MEDS: BLOOD SUGAR DIAGNOSTIC 1 EACH STRIP IN SCH ×5 (00:49→23:56)
[2022-02-03] MEDS: INSULIN REGULAR, HUMAN 100 UNIT/ML 3 ML VIAL SQ PRN ×3 (00:50→23:57)
--- NOTE | 2022-02-03 00:50 | NUR ---
RN NOTES: PT'S BLOOD SUGAR 100. NO COVERAGE NEEDED. NO S/S OF HYPER/HYPOGLYCEMIA. WILL CONTINUE TO MONITOR
[2022-02-03 04:00] VITALS: BP 104/61
--- NOTE | 2022-02-03 05:53 | NUR ---
RN NOTES: PT'S BLOOD SUGAR 88. NO COVERAGE NEEDED. NO S/S OF HYPER/HYPOGLYCEMIA. WILL CONTINUE TO MONITOR
--- NOTE | 2022-02-03 06:44 | NUR ---
RN CLOSING NOTES PATIENT IN BED, OBTUNDED, OPEN BOTH EYES. ON ROOM AIR AND PT TOLERATED WELL. O2 SAT 98%. IV ACCESS ON LFA # 18G AND L HAND #20G INTACT AND PATENT. NO S/S OF INFILTRATIONS. LT CHEST WALL HD CATH INTACT AND COVERED WITH DRY DRESSING. G-TUBE FEEDING WELL TOLERATED, WITH NEPHRO RUNNING @ 85 ML/HR. FEEDING TURNED OFF. PT REMAIN NPO AFTER MIDNIGHT FOR POSSIBLE EGD TODAY. NO FACIAL GRIMACING NOTED. NO ACUTE DISTRESS. ALL DUE MED GIVEN ORDERED. ALL SAFETY MEASURES IN PLACE: BED IN LOWEST POSITION AND LOCKED. SIDE RAILS UP X 3, PLACE CALL LIGHT WITHIN REACH. WILL ENDORSE TO MORNING SHIFT NURSE.
[2022-02-03 06:51] LABS: BASOPHILS # (AUTO) 0.1 K/uL (0.0-0.2); BASOPHILS % (AUTO) 0.8 % (0.0-2.0); EOSINOPHILS % (AUTO) 2.7 % (0.0-6.0); HEMATOCRIT 24 % (39-51); LYMPHOCYTES # (AUTO) 1.3 K/uL (0.8-4.8); LYMPHOCYTES % (AUTO) 10.8 % (20.0-44.0); MEAN CORPUSCULAR HGB CONC 33 g/dl (31.0-36.0); MEAN CORPUSCULAR VOLUME 96 fL (80-96); MONOCYTES # (AUTO) 1.3 K/uL (0.1-1.30); MONOCYTES % (AUTO) 10.8 % (2.0-12.0); NEUTROPHILS # (AUTO) 9.1 K/uL (1.8-8.9); NEUTROPHILS % (AUTO) 74.9 % (43.0-81.0); PLATELET COUNT (AUTO) 205 K/uL (150-450); RED BLOOD CELL COUNT(AUTO) 2.55 MIL/uL (4.5-6.0); WHITE BLOOD COUNT (AUTO) 12.2 K/uL (4.3-11.0)
[2022-02-03 07:05] LABS: CALCIUM, SERUM 9.9 mg/dL (8.5-10.1); CARBON DIOXIDE 27 mmol/L (21-32); CHLORIDE 97 mmol/L (98-107); GLUCOSE 110 mg/dL (74-106); MAGNESIUM 2.7 mg/dL (1.8-2.4); PHOSPHORUS 3.5 mg/dL (2.5-4.9); SODIUM SERUM 133 mmol/L (136-145)
--- NOTE | 2022-02-03 07:43 | NUR ---
RN OPEN NOTE RECEIVED PATIENT IN BED, OBTUNDED, OPEN BOTH EYES. ON ROOM AIR AND PT TOLERATED WELL. IV ACCESS ON LFA # 18G AND L HAND #20G INTACT AND PATENT. NO S/S OF INFILTRATIONS. LT CHEST WALL HD CATH INTACT AND COVERED WITH DRY DRESSING. G-TUBE IN PLACE , PATIENT ID NPO DUE TO COMING PROCEDURE EGD NO FACIAL GRIMACING NOTED. NO ACUTE DISTRESS. PATIENT HAS MULTIPLE WOUNDS WILL FALLOW POC FOR WOUND TREATMENT ALL SAFETY MEASURES IN PLACE: BED IN LOWEST POSITION AND LOCKED. SIDE RAILS UP X 3, PLACE CALL LIGHT WITHIN REACH. WILL CONTINUE TO MONITOR.
[2022-02-03 07:46] LABS: CREATININE 6.1 mg/dL (0.6-1.3)
[2022-02-03 07:52] LABS: UREA NITROGEN, BLOOD 83 mg/dL (7-18)
[2022-02-03] MEDS: CLOPIDOGREL BISULFATE 75 MG TABLET PO SCH (08:59)
[2022-02-03] MEDS ORDERED: BISACODYL SUPP (10 MG) 10 MG/SUPP.RECT SUPP.RECT RC PRN (09:00)
[2022-02-03] MEDS ORDERED: DOCUSATE SODIUM LIQ 100 MG/10 ML UDC GT PRN (09:00)
[2022-02-03] MEDS ORDERED: NEPRO VAN 237 ML CAN GT SCH (09:00)
[2022-02-03] MEDS ORDERED: ACETAMINOPHEN 325 MG TABLET PO PRN (09:00)
[2022-02-03] MEDS: SEVELAMER CARBONATE 800 MG POWD.PACK GT SCH ×3 (09:00→16:36)
[2022-02-03] MEDS ORDERED: NITROGLYCERIN 0.4 MG/TAB BOTTLE SL PRN (09:00)
[2022-02-03] MEDS ORDERED: CLONIDINE HCL 0.1 MG TABLET GT PRN (09:00)
[2022-02-03] MEDS: ASPIRIN 81 MG TAB.CHEW PO SCH (09:01)
[2022-02-03] MEDS: METOPROLOL TARTRATE 25 MG TABLET PO SCH ×2 (09:01→16:37)
[2022-02-03] MEDS: THERAHONEY GEL 1.5 OZ TUBE TP SCH (09:13)
[2022-02-03] MEDS: Z GUARD REMEDY 4 OZ OINT TP PRN (09:13)
[2022-02-03] MEDS: Z GUARD REMEDY 4 OZ OINT TP SCH (09:14)
[2022-02-03] MEDS: DAKINS QUARTER STRENGTH (0.125%) 480 ML BOTTLE TOP SCH (09:14)
[2022-02-03] MEDS: MEROPENEM 500 MG in IV NS 0.9% 50 ML IV SCH (09:17)
[2022-02-03] MEDS ORDERED: diphenhydrAMINE HCL ELIX 25 MG/10 ML UDC GT PRN (09:30)
[2022-02-03] MEDS ORDERED: EPOETIN ALFA-EPBX 10,000 UNIT/ML VIAL IV ONE (11:30)
[2022-02-03 12:00] VITALS: BP 135/80
[2022-02-03] MEDS: ALBUMIN 25% 25 GM in PREMIX 1 EA IV PRN (14:33)
[2022-02-03] MEDS: FAMOTIDINE (20 MG) 20 MG TABLET PO SCH (17:47)
--- NOTE | 2022-02-03 18:39 | NUR ---
MS RN OPENING NOTES PATIENT IN BED, OBTUNDED, OPEN BOTH EYES. ON ROOM AIR AND PT TOLERATED WELL. IV ACCESS ON [place] MID LINE , NO S/S OF INFILTRATIONS. LT CHEST WALL HD CATH INTACT AND COVERED WITH DRY DRESSING. G-TUBE FEEDING WELL TOLERATED. RUNNING WITH NEPHRO RUNNING @ 85 ML/HR.PATIENT HAD EGD PROCEDURE DONE TODAY , AND HAS HEMODIALYSIS, NO FACIAL GRIMACING NOTED. NO ACUTE DISTRESS. ALL SAFETY MEASURES IN PLACE: BED IN LOWEST POSITION AND LOCKED. SIDE RAILS UP X 3, PLACE CALL LIGHT WITHIN REACH. WILL CONTINUE TO MONITOR.
--- NOTE | 2022-02-03 19:40 | NUR ---
RN OPENING NOTES RECEIVED PATIENT IN BED, OBTUNDED, OPEN BOTH EYES. ON ROOM AIR AND PT TOLERATED WELL. IV ACCESS ON L HAND #20G AND NICOLE MIDLINE INTACT AND PATENT. NO S/S OF INFILTRATIONS. LT CHEST WALL HD CATH INTACT AND COVERED WITH DRY DRESSING. G-TUBE FEEDING WELL TOLERATED, WITH NEPHRO RUNNING @ 85 ML/HR. EGD DONE TODAY. NO FACIAL GRIMACING NOTED. NO ACUTE DISTRESS. ALL SAFETY MEASURES IN PLACE: BED IN LOWEST POSITION AND LOCKED. SIDE RAILS UP X 3, PLACE CALL LIGHT WITHIN REACH. WILL CONTINUE TO MONITOR
--- NOTE | 2022-02-03 19:40 | NUR ---
RN OPENING NOTES RECEIVED PATIENT IN BED, OBTUNDED, OPEN BOTH EYES. ON ROOM AIR AND PT TOLERATED WELL. IV ACCESS ON LFA # 18G AND L HAND #20G INTACT AND PATENT. NO S/S OF INFILTRATIONS. LT CHEST WALL HD CATH INTACT AND COVERED WITH DRY DRESSING. G-TUBE FEEDING WELL TOLERATED, WITH NEPHRO RUNNING @ 85 ML/HR. EGD DONE TODAY. NO FACIAL GRIMACING NOTED. NO ACUTE DISTRESS. ALL SAFETY MEASURES IN PLACE: BED IN LOWEST POSITION AND LOCKED. SIDE RAILS UP X 3, PLACE CALL LIGHT WITHIN REACH. WILL CONTINUE TO MONITOR Addendum: 02/03/22 at 2023 by MICA BAUER RN wrong chart
[2022-02-03 20:00] VITALS: BP 108/47
[2022-02-03] MEDS: ATORVASTATIN 40 MG TABLET PO SCH (21:24)
--- NOTE | 2022-02-03 23:57 | NUR ---
RN NOTES: PT'S BLOOD SUGAR 83, NO COVERAGE NEEDED. NO S/S OF HYPER/HYPOGLYCEMIA. WILL CONTINUE TO MONITOR
[2022-02-04 04:00] VITALS: BP 117/61
[2022-02-04] MEDS: BLOOD SUGAR DIAGNOSTIC 1 EACH STRIP IN SCH ×2 (06:28→12:13)
[2022-02-04] MEDS: INSULIN REGULAR, HUMAN 100 UNIT/ML 3 ML VIAL SQ PRN (06:29)
--- NOTE | 2022-02-04 06:31 | NUR ---
RN CLOSING NOTES PATIENT IN BED, OBTUNDED, OPEN EYES. ON ROOM AIR AND PT TOLERATED WELL. O2 SAT 98%. IV ACCESS ON LT HAND #20G AND NICOLE MIDLINE INTACT AND PATENT. NO S/S OF INFILTRATIONS. LT CHEST WALL HD CATH INTACT AND COVERED WITH DRY DRESSING. G-TUBE FEEDING WELL TOLERATED. RUNNING WITH NEPHRO RUNNING @ 85 ML/HR. NO FACIAL GRIMACING NOTED. NO ACUTE DISTRESS. ALL DUE MEDS GIVEN ORDERED. BLOOD SUGAR 84. NO COVERAGE NEEDED. NO S/S OF HYPER/HYPOGLYCEMIA. ALL SAFETY MEASURES IN PLACE: BED IN LOWEST POSITION AND LOCKED. SIDE RAILS UP X 3, PLACE CALL LIGHT WITHIN REACH. WILL ENDORSE TO MORNING SHIFT NURSE.
[2022-02-04] MEDS: SEVELAMER CARBONATE 800 MG POWD.PACK GT SCH ×2 (08:25→12:25)
[2022-02-04] MEDS: ASPIRIN 81 MG TAB.CHEW PO SCH (08:25)
[2022-02-04] MEDS: METOPROLOL TARTRATE 25 MG TABLET PO SCH (08:25)
[2022-02-04] MEDS: CLOPIDOGREL BISULFATE 75 MG TABLET PO SCH (08:25)
[2022-02-04] MEDS: DAKINS QUARTER STRENGTH (0.125%) 480 ML BOTTLE TOP SCH (08:33)
[2022-02-04] MEDS: Z GUARD REMEDY 4 OZ OINT TP SCH (08:34)
[2022-02-04] MEDS: Z GUARD REMEDY 4 OZ OINT TP PRN (08:34)
[2022-02-04] MEDS: THERAHONEY GEL 1.5 OZ TUBE TP SCH (08:34)
[2022-02-04] MEDS ORDERED: VIT B CMPLX 3/FA/VIT C/BIOTIN 1 TAB TABLET GT SCH (09:00)
[2022-02-04] MEDS: MEROPENEM 500 MG in IV NS 0.9% 50 ML IV SCH (09:16)
[2022-02-04] MEDS ORDERED: SEVE0.8P GT (11:49)
[2022-02-04] MEDS ORDERED: Nepro GT (11:49)
[2022-02-04 12:00] VITALS: BP 134/53
[2022-02-04 12:08] LABS: ALANINE AMINOTRANSFERASE 18 U/L (12-78); ALBUMIN 3.1 g/dL (3.4-5.0); ALKALINE PHOSPHATASE 158 U/L (46-116); ASPARTATE AMINOTRANSFERASE 21 U/L (15-37); BILIRUBIN,TOTAL 0.6 mg/dL (0.2-1.0); CALCIUM, SERUM 9.9 mg/dL (8.5-10.1); CARBON DIOXIDE 28 mmol/L (21-32); CHLORIDE 97 mmol/L (98-107); GLUCOSE 124 mg/dL (74-106); POTASSIUM 4.1 mmol/L (3.5-5.1); SODIUM SERUM 134 mmol/L (136-145); TOTAL PROTEIN, SERUM 7.4 g/dL (6.4-8.2); UREA NITROGEN, BLOOD 64 mg/dL (7-18)
--- NOTE | 2022-02-04 13:59 | NUR ---
RN NOTE SPOKE WITH MINO CAM FOR REPORT.
--- NOTE | 2022-02-04 15:25 | NUR ---
RN NOTE PT LEFT UNIT FOR D/C TO SNF. IN GOOD CONDITION, V/S STABLE. NOT IN RESPI DISTRESS. IV ACCESS D/C.
== END 2022-02-04 15:23 | DRG 177 ==
LOC: ER 20:16 → TELE1 23:00 → MEDSG1 01-21 04:03
PROVIDERS: ADMIT Nurse Practitioner Acute Care; ATTEND Internal Medicine
PROC: 5A1D70Z Performance of Urinary Filtration, Intermittent, Less than 6 Hours Per Day (ICD-10-PCS; principal; 2022-01-21)
PROC: 30233N1 Transfusion of Nonautologous Red Blood Cells into Peripheral Vein, Percutaneous Approach (ICD-10-PCS; 2022-01-30)
PROC: 05HD33Z Insertion of Infusion Device into Right Cephalic Vein, Percutaneous Approach (ICD-10-PCS; 2022-02-03)
PROC: 0DJ08ZZ Inspection of Upper Intestinal Tract, Via Natural or Artificial Opening Endoscopic (ICD-10-PCS; 2022-02-03)
DX: U07.1 COVID-19 (principal); G93.41 Metabolic encephalopathy; J12.82 Pneumonia due to coronavirus disease 2019; N18.6 End stage renal disease; J15.9 Unspecified bacterial pneumonia; I12.0 Hypertensive chronic kidney disease with stage 5 chronic kidney disease or end stage renal disease; E44.0 Moderate protein-calorie malnutrition; D68.59 Other primary thrombophilia; M86.9 Osteomyelitis, unspecified; L03.811 Cellulitis of head [any part, except face]; L02.811 Cutaneous abscess of head [any part, except face]; E87.5 Hyperkalemia; Z99.2 Dependence on renal dialysis; Z86.73 Personal history of transient ischemic attack (TIA), and cerebral infarction without residual deficits; E11.22 Type 2 diabetes mellitus with diabetic chronic kidney disease; M62.40 Contracture of muscle, unspecified site; R13.10 Dysphagia, unspecified; Z93.1 Gastrostomy status; D63.8 Anemia in other chronic diseases classified elsewhere; E88.09 Other disorders of plasma-protein metabolism, not elsewhere classified; G93.89 Other specified disorders of brain; I25.10 Atherosclerotic heart disease of native coronary artery without angina pectoris; L89.626 Pressure-induced deep tissue damage of left heel; L89.616 Pressure-induced deep tissue damage of right heel; L89.520 Pressure ulcer of left ankle, unstageable; M62.50 Muscle wasting and atrophy, not elsewhere classified, unspecified site; E11.69 Type 2 diabetes mellitus with other specified complication; M89.8X9 Other specified disorders of bone, unspecified site; K25.9 Gastric ulcer, unspecified as acute or chronic, without hemorrhage or perforation; Z82.49 Family history of ischemic heart disease and other diseases of the circulatory system; Z83.3 Family history of diabetes mellitus; F09 Unspecified mental disorder due to known physiological condition
CPT/HCPCS: 36415; 70540; 71045-TC; 80048-TC; 80053-TC; 80061-TC; 80076-TC; 82272-TC; 82962-TC; 83540-TC; 83735-TC; 83880; 84100-TC; 84484-TC; 85025-TC; 85027-TC; 85378-TC; 86140-TC; 86706; 86850-TC; 87040-TC; 87070-TC; 87081-TC; 87186-TC; 87340; 90935-TC; 97110-TC; 97112-TC; 97530-TC; A4216; A4217; A6253; A6403; C9803; G0378; J0692; J0885; J1644; J1815; J2185; J7030; J7040; J7050; J7060; P9016; P9047